=== PATIENT | male | born 1985 | race Caucasian/White ===

== ENCOUNTER 2019-08-28 08:12 | Emergency (ER) | payer OTHER, SELFPAY ==
[~2019-08-28] VITALS: Ht 177.8 cm; Wt 79.4 kg
[2019-08-28 08:18] VITALS: BP 109/72
--- NOTE | 2019-08-28 08:23 | NUR ---
34 YO MALE BIBA FROM [facility] FOR VOMITING OBNCE YESTERDAY. PT HERE TO RULE OUT BOWEL OBSTRUCTION. PT IS ON T-BAR TRACH WITH 2L O2. A/O X2, RESPONSIVE TO PAIN AND VOICE. ABD IS NON DISTENDED AND BS ACTIVE IN ALL 4 QUADS.
--- NOTE | 2019-08-28 08:41 | NUR ---
LAB AT BEDSIDE
--- NOTE | 2019-08-28 08:43 | NUR ---
PT TAKEN TO CT VIA POONAM
[2019-08-28 08:53] LABS: BASOPHILS # (AUTO) 0.1 K/uL (0.00-0.22); BASOPHILS % (AUTO) 0.6 % (0.0-2.0); EOSINOPHILS # (AUTO) 0.1 K/uL (0-0.4); EOSINOPHILS % (AUTO) 0.7 % (0.0-4.0); HEMATOCRIT 34.1 % (36-52); HEMOGLOBIN 10.8 g/dL (12.0-18.0); LYMPHOCYTES # (AUTO) 1.5 K/uL (2.0-11.5); LYMPHOCYTES % (AUTO) 12.7 % (20.5-51.1); MEAN CORPUSCULAR HEMOGLOBIN 24 pg (27-31); MEAN CORPUSCULAR HGB CONC 32 g/dL (33-37); MEAN CORPUSCULAR VOLUME 74.2 fL (80-94); MONOCYTES # (AUTO) 0.5 K/uL (0.8-1.0); MONOCYTES % (AUTO) 4.2 % (1.7-9.3); NEUTROPHILS # (AUTO) 9.4 K/uL (1.8-7.7); NEUTROPHILS % (AUTO) 81.8 % (42.2-75.2); PLATELET COUNT (AUTO) 335 K/uL (140-450); RED BLOOD CELL COUNT(AUTO) 4.59 MIL/uL (4.20-6.10); RED CELL DISTRIBUTION WIDTH 13.8 % (11.6-13.7); WHITE BLOOD COUNT (AUTO) 11.5 K/uL (4.8-10.8)
[2019-08-28] MEDS ORDERED: MAGN400S60 GT/PO (08:53)
[2019-08-28] MEDS ORDERED: SCOP1PAT TP (08:53)
[2019-08-28] MEDS ORDERED: KEP500L GT (08:53)
[2019-08-28] MEDS ORDERED: CHLO480L1 PO (08:53)
[2019-08-28] MEDS ORDERED: PRON INH ×2 (08:53)
[2019-08-28] MEDS ORDERED: LOV40I SUBQ (08:53)
[2019-08-28] MEDS ORDERED: DOCU-299 GT (08:53)
[2019-08-28] MEDS ORDERED: ASCO500T45 PO (08:53)
[2019-08-28] MEDS ORDERED: PROP20TA29 GT (08:53)
[2019-08-28] MEDS ORDERED: MULT-1868 GT (08:53)
[2019-08-28] MEDS ORDERED: ACET-2619 GT (08:53)
--- NOTE | 2019-08-28 09:00 | NUR ---
PT BACK FROM CT
[2019-08-28 09:16] LABS: ALBUMIN 2.7 g/dL (3.4-5.0); CARBON DIOXIDE 29.5 mmol/L (21-32); CREATININE 1.3 mg/dL (0.6-1.3); POTASSIUM 3.5 mmol/L (3.5-5.1); TOTAL BILIRUBIN 0.9 mg/dL (0.0-1.0)
--- NOTE | 2019-08-28 09:34 | NUR ---
PT IN BED SLEEPING. CHEST RISE AND FALL EVEN AND UNLABORED. PT AROUSEABLE TO STIMULI. ALL VSS. WILL CONTINUE TO MONITOR.
--- NOTE | 2019-08-28 10:55 | NUR ---
[facility] at bedside for return transport.
[2019-08-28 11:01] VITALS: BP 105/72
--- NOTE | 2019-08-28 11:03 | NUR ---
Patient Tranfers to outside Facility Physician:DR HOUSE Location:[facility]
--- NOTE | 2019-08-28 18:48 | NUR ---
SPOKE WITH VIOLETTE DIAZ FROM [facility] TO ADVISE THEM ABOUT COVID RESULTS. COVID RESULTS NEGATIVE
== END 2019-08-28 11:03 ==
LOC: MED 08:12 → EEVIPCON 08:12 → MED 11:03
DX: J18.9 Pneumonia, unspecified organism (principal); I51.89 Other ill-defined heart diseases; K21.9 Gastro-esophageal reflux disease without esophagitis; R56.9 Unspecified convulsions; Z98.890 Other specified postprocedural states; Z79.899 Other long term (current) drug therapy; Z20.828 Contact with and (suspected) exposure to other viral communicable diseases
CPT/HCPCS: 36415; 71045; 74176; 80053; 83690; 85025; 99285; C9803; Q0092; U0003; 99284

== ENCOUNTER 2019-12-03 18:06 | Observation (INO) | payer OTHER, SELFPAY ==
[~2019-12-03] VITALS: Ht 177.8 cm; Wt 67.6 kg
[~2019-12-03 18:06] MED LIST: ACET-2619 GT; ALBU0.0912 IH; ASCO500T95 PO; ATRMDI IH; CHLO480L1 PO; DOCU-299 GT; KEP500L GT; LEVE100S26 GT; LOV40I SUBQ; MAGN400S60 GT/PO; MULT-1328 GT; MULT-1868 GT; PIPE1PDS26 IV; POLY15SO74 OP; PRON INH; PROP20TA29 GT; SCOP1PAT TP; SCOPOLAMINE TD
[2019-12-03 18:19] VITALS: BP 104/71
[2019-12-03] MEDS ORDERED: VANC250C9 IV (18:46)
[2019-12-03 18:53] LABS: BASOPHILS % (AUTO) 0.5 % (0.0-2.0); EOSINOPHILS # (AUTO) 0.3 K/uL (0-0.4); EOSINOPHILS % (AUTO) 5.9 % (0.0-4.0); HEMATOCRIT 28.8 % (36-52); HEMOGLOBIN 9.1 g/dL (12.0-18.0); LYMPHOCYTES # (AUTO) 2.1 K/uL (2.0-11.5); LYMPHOCYTES % (AUTO) 39.5 % (20.5-51.1); MEAN CORPUSCULAR HEMOGLOBIN 24 pg (27-31); MEAN CORPUSCULAR HGB CONC 32 g/dL (33-37); MEAN CORPUSCULAR VOLUME 75.2 fL (80-94); MONOCYTES # (AUTO) 0.7 K/uL (0.8-1.0); MONOCYTES % (AUTO) 12.9 % (1.7-9.3); NEUTROPHILS # (AUTO) 2.1 K/uL (1.8-7.7); NEUTROPHILS % (AUTO) 41.2 % (42.2-75.2); PLATELET COUNT (AUTO) 262 K/uL (140-450); RED BLOOD CELL COUNT(AUTO) 3.83 MIL/uL (4.20-6.10); RED CELL DISTRIBUTION WIDTH 14.6 % (11.6-13.7); WHITE BLOOD COUNT (AUTO) 5.2 K/uL (4.8-10.8)
[2019-12-03 19:00] LABS: APPEARANCE,URINE CLEAR (CLEAR); BILIRUBIN,URINE NEGATIVE (NEGATIVE); BLOOD, URINE NEGATIVE (NEGATIVE); COLOR,URINE YELLOW (YELLOW); LEUKOCYTE ESTERASE ,URINE NEGATIVE (NEGATIVE); NITRITE, URINE NEGATIVE (NEGATIVE); UGLUCOSE NEGATIVE (NEGATIVE)
[2019-12-03 19:09] LABS: ALBUMIN 2.8 g/dL (3.4-5.0); ANION GAP 10.7 (8-16); CARBON DIOXIDE 29.1 mmol/L (21-32); CREATININE 0.8 mg/dL (0.6-1.3); POTASSIUM 3.8 mmol/L (3.5-5.1); TOTAL BILIRUBIN 0.2 mg/dL (0.0-1.0)
[2019-12-03] MEDS ORDERED: ACETAMINOPHEN 325 MG TAB PO PRN (19:55)
[2019-12-03] MEDS ORDERED: MORPHINE SULFATE 2 MG/ML SYR IVP PRN (19:55)
[2019-12-03] MEDS ORDERED: ONDANSETRON 4 MG/2 ML VIAL IVP PRN (19:55)
[2019-12-03] MEDS ORDERED: HYDROcodone/APAP 5/325 MG 1 TAB TAB PO PRN (19:55)
[2019-12-03] MEDS ORDERED: SCOPOLAMINE TD SCH (20:00)
[2019-12-03] MEDS ORDERED: MAGNESIUM HYDROXIDE 2400 MG/30 ML UDC PO PRN (20:00)
[2019-12-03] MEDS ORDERED: ACETAMINOPHEN 325 MG TAB GT PRN ×2 (20:00)
[2019-12-03] MEDS ORDERED: ALBUTEROL 0.083% 2.5 MG/3 ML NEBU INH PRN ×2 (20:00)
[2019-12-03] MEDS ORDERED: IPRATROPIUM BROMIDE 17 MCG IH PRN (20:00)
[2019-12-03] MEDS ORDERED: ACETAMINOPHEN 160 MG/5 ML UDC GT ONE (20:05)
[2019-12-03] MEDS ORDERED: DOCUSATE SODIUM 100 MG GELCAP PO SCH (21:00)
[2019-12-03] MEDS ORDERED: VANCOMYCIN IV SCH (21:00)
[2019-12-03] MEDS: levETIRAcetam 100 MG/ML ORASYR GT SCH (21:39)
[2019-12-03] MEDS: PIPERACILLIN/TAZOBACTAM 3.375 GM VIAL IV SCH (21:39)
[2019-12-03] MEDS: CHLORHEXIDINE GLUCONATE 0.12% 473 ML LIQ MM SCH ×2 (21:45→21:52)
[2019-12-03] MEDS ORDERED: VANCOMYCIN HCL 750 MG in NACL 0.9% 250 ML IV SCH (22:00)
[2019-12-03] MEDS ORDERED: IPRATROPIUM HFA MDI 17 MCG/ACTUATION 12.9 GM INH PRN (22:20)
[2019-12-03] MEDS ORDERED: VANCOMYCIN 1,000 MG VIAL ONE (22:28)
[2019-12-03] MEDS: VANCOMYCIN HCL 1,000 MG in NACL 0.9% 250 ML IV SCH (22:39)
[2019-12-04] MEDS: PROPRANOLOL 20 MG TAB GT SCH ×5 (00:16→18:14)
[2019-12-04 03:38] VITALS: BP 115/78
[2019-12-04] MEDS: PIPERACILLIN/TAZOBACTAM 3.375 GM VIAL IV SCH (04:57)
[2019-12-04 06:15] LABS: BASOPHILS % (AUTO) 0.6 % (0.0-2.0); EOSINOPHILS # (AUTO) 0.2 K/uL (0-0.4); EOSINOPHILS % (AUTO) 2.7 % (0.0-4.0); HEMATOCRIT 28.6 % (36-52); HEMOGLOBIN 9.1 g/dL (12.0-18.0); LYMPHOCYTES # (AUTO) 1.6 K/uL (2.0-11.5); LYMPHOCYTES % (AUTO) 22.3 % (20.5-51.1); MEAN CORPUSCULAR HEMOGLOBIN 24 pg (27-31); MEAN CORPUSCULAR HGB CONC 32 g/dL (33-37); MEAN CORPUSCULAR VOLUME 75.7 fL (80-94); MONOCYTES # (AUTO) 0.7 K/uL (0.8-1.0); MONOCYTES % (AUTO) 9.8 % (1.7-9.3); NEUTROPHILS # (AUTO) 4.7 K/uL (1.8-7.7); NEUTROPHILS % (AUTO) 64.6 % (42.2-75.2); PLATELET COUNT (AUTO) 259 K/uL (140-450); RED BLOOD CELL COUNT(AUTO) 3.78 MIL/uL (4.20-6.10); RED CELL DISTRIBUTION WIDTH 14.9 % (11.6-13.7); WHITE BLOOD COUNT (AUTO) 7.2 K/uL (4.8-10.8)
[2019-12-04] MEDS ORDERED: VANCOMYCIN PER PHARMACY MC PRN (07:05)
[2019-12-04] MEDS ORDERED: ACETAMINOPHEN 650 MG/20.3 ML UDC GT PRN ×2 (07:09→07:10)
[2019-12-04] MEDS ORDERED: DOCUSATE 100 MG/10 ML UDC PO SCH (07:11)
[2019-12-04 07:12] LABS: ALBUMIN 3.1 g/dL (3.4-5.0); ANION GAP 12.8 (8-16); MAGNESIUM 1.9 mg/dL (1.8-2.4); POTASSIUM 3.8 mmol/L (3.5-5.1); TOTAL BILIRUBIN 0.3 mg/dL (0.0-1.0)
[2019-12-04] MEDS ORDERED: ASCORBIC ACID 500 MG TAB PO SCH (09:00)
[2019-12-04] MEDS ORDERED: SCOPOLAMINE 1.5 MG/72 HR PATCH TD SCH (09:00)
[2019-12-04] MEDS ORDERED: MULTIVITAMIN/MINERALS 1 TAB PO SCH (09:00)
[2019-12-04] MEDS ORDERED: ENOXAPARIN 40 MG/0.4 ML SYR SUBQ SCH (09:00)
[2019-12-04] MEDS ORDERED: NON-FORMULARY ITEM (Multivitamin with Minerals (Multivitamins with Minerals) 1 TAB) GT SCH (09:00)
[2019-12-04] MEDS: levETIRAcetam 100 MG/ML ORASYR GT SCH (09:20)
[2019-12-04] MEDS: VANCOMYCIN HCL 1,000 MG in NACL 0.9% 250 ML IV SCH (09:57)
[2019-12-04] MEDS ORDERED: PIPERACILLIN/TAZOBACTAM 3.375 GM VIAL IV SCH ×2 (13:33→21:00)
[2019-12-04] MEDS ORDERED: PIPERACILLIN/TAZOBACTAM 3.375 GM in DEXTROSE 5% 50 ML IV SCH ×2 (13:35→21:00)
[2019-12-04] MEDS ORDERED: CRUSHER, PILL MC ONE (13:38)
[2019-12-04 16:00] VITALS: BP 132/76
[2019-12-04 17:06] VITALS: BP 132/76
== END 2019-12-04 19:30 ==
LOC: MED 18:06 → MTU 19:52
PROVIDERS: ADMIT Internal Medicine; ATTEND Internal Medicine
DX: Z45.2 Encounter for adjustment and management of vascular access device (principal); J69.0 Pneumonitis due to inhalation of food and vomit; J96.10 Chronic respiratory failure, unspecified whether with hypoxia or hypercapnia; G93.49 Other encephalopathy; G40.909 Epilepsy, unspecified, not intractable, without status epilepticus; D63.8 Anemia in other chronic diseases classified elsewhere; R53.2 Functional quadriplegia; I10 Essential (primary) hypertension; Z93.0 Tracheostomy status; Z93.1 Gastrostomy status; Z79.899 Other long term (current) drug therapy
CPT/HCPCS: 36415; 36573; 71045; 76937; 80053; 80202; 81003; 83605; 83735; 83880; 84484; 85025; 87040; 87086; 94760; 96365; 96366; 96367; 96372; 99285; G0378; J1650; J2543; J3370; J7030; J7060; Q0092; C1751

== ENCOUNTER 2020-08-15 16:36 | Inpatient (IN) | payer OTHER, MEDICAID, SELFPAY ==
[~2020-08-15] VITALS: Ht 167.6 cm; Wt 82.1 kg
[~2020-08-15 16:36] MED LIST changes: +ASCO500T95 GT; -ASCO500T95 PO; +VANC250C9 IV
--- NOTE | 2020-08-15 16:36 | NUR ---
Patient BIBA ALS, transferred to bed 11. RN evaluating the patient at bedside.
--- NOTE | 2020-08-15 16:38 | NUR ---
Dr. Desouza is evaluating the patient at bedside.
[2020-08-15 16:43] VITALS: BP 72/44
[2020-08-15] MEDS ORDERED: NACL 0.9% 1,000 ML IV ONE ×3 (16:55→19:55)
--- NOTE | 2020-08-15 16:59 | NUR ---
35/M shatony from [facility]. Per EMS staff states patient had a meléndez catheter placed 10 hours ago and blood was noticed in the bag. Patient arrived with no meléndez, site appears to still be slightly bleeding. Patient is nonverbal and nonambulatory at baseline. Patient arrived hypotensive and tachycardic. Patient is DNR, comfort measures only per chart that was received by EMS. Doctor Said called family to discuss further care for patient.
--- NOTE | 2020-08-15 17:00 | NUR ---
earth moving technician at bedside.
[2020-08-15] MEDS ORDERED: cefTRIAXone 1,000 MG VIAL ONE (17:06)
[2020-08-15] MEDS ORDERED: AZITHROMYCIN 500 MG in DEXTROSE 5% 250 ML IV ONE (17:25)
[2020-08-15 18:16] LABS: HEMATOCRIT 32.6 % (36-52); HEMOGLOBIN 10.2 g/dL (12.0-18.0); MEAN CORPUSCULAR HEMOGLOBIN 24 pg (27-31); MEAN CORPUSCULAR HGB CONC 31 g/dL (33-37); MEAN CORPUSCULAR VOLUME 75.6 fL (80-94); PLATELET COUNT (AUTO) 235 K/uL (140-450); RED BLOOD CELL COUNT(AUTO) 4.31 MIL/uL (4.20-6.10); RED CELL DISTRIBUTION WIDTH 14.7 % (11.6-13.7); WHITE BLOOD COUNT (AUTO) 22.6 K/uL (4.8-10.8)
[2020-08-15] MEDS ORDERED: AZITHROMYCIN 500 MG INJ VIAL IV ONE (18:51)
[2020-08-15 18:55] LABS: EOSINOPHILS % (MANUAL) 1 % (0-4); LYMPHOCYTES % (MANUAL) 7 % (20-46); MONOCYTES % (MANUAL) 11 % (5-12)
[2020-08-15 18:58] LABS: APPEARANCE,URINE CLOUDY (CLEAR); BILIRUBIN,URINE 1+ (NEGATIVE); BLOOD, URINE 3+ (NEGATIVE); COLOR,URINE RED (YELLOW); LEUKOCYTE ESTERASE ,URINE TRACE (NEGATIVE); NITRITE, URINE NEGATIVE (NEGATIVE); UGLUCOSE TRACE (NEGATIVE)
[2020-08-15 19:00] LABS: RBC,URINE TOO NUMEROUS TO COUN /HPF (0-5); WBC,URINE 0-5 /HPF (0-5)
[2020-08-15 19:03] LABS: ALBUMIN 2.5 g/dL (3.4-5.0); ANION GAP 18.6 (8-16); CARBON DIOXIDE 18.7 mmol/L (21-32); POTASSIUM 5.3 mmol/L (3.5-5.1); TOTAL BILIRUBIN 0.5 mg/dL (0.0-1.0)
--- NOTE | 2020-08-15 19:15 | NUR ---
RECEIVED REPORT FROM VIOLETTE LAY. [facility] AT THIS TIME.
--- NOTE | 2020-08-15 20:00 | NUR ---
PT SUCTIONED AT THIS TIME.
--- NOTE | 2020-08-15 20:00 | NUR ---
INDWELLING 16FR PARSONS REMOVED. INSERTED NEW 16FR THREE WAY PARSONS FOR CONT BLADDER IRRIGATION.
--- NOTE | 2020-08-15 20:01 | NUR ---
ERMD SAID MADE AWARE OF PTS LOW BP BEING 80/35. PER MD, SET UP CENTRAL LINE KIT AT BEDSIDE.
[2020-08-15] MEDS ORDERED: ONDANSETRON 4 MG/2 ML VIAL IVP PRN (20:30)
[2020-08-15] MEDS ORDERED: MAG SULF 2000 MG/WATER PREMIX 50 ML IV PRN (20:30)
[2020-08-15] MEDS ORDERED: NACL 0.9% 1,000 ML IV SCH (20:30)
[2020-08-15] MEDS ORDERED: MORPHINE SULFATE 4 MG/ML SYR IVP PRN (20:30)
[2020-08-15] MEDS ORDERED: POTASSIUM CHLORIDE 10 MEQ TABER PO PRN (20:30)
[2020-08-15] MEDS ORDERED: KCL 20 MEQ/WATER INJ PREMIX 200 ML IV PRN (20:30)
[2020-08-15] MEDS ORDERED: MAGNESIUM OXIDE 400 MG TAB PO PRN (20:30)
[2020-08-15 20:32] LABS: PROTHROMBIN TIME 18.8 secs (10.8-13.4)
--- NOTE | 2020-08-15 21:00 | NUR ---
CENTRAL LINE KIT SET UP AT BEDSIDE FOR
--- NOTE | 2020-08-15 21:30 | NUR ---
NEW CENTRAL LINE KIT SETUP AT BEDSIDE D/T UNSUCCESSFULL ATTEMPT THE FIRST TIME.
--- NOTE | 2020-08-15 21:45 | NUR ---
MD TRIED 2X FOR CENTRAL LINE PLACEMENT, BOTHJ ATTEMPTS UNSUCESSFUL.
--- NOTE | 2020-08-15 22:00 | NUR ---
Patient will be admitted to care of DR. DIAZ. Admited to ICU. Will go to room 4. Belongings list completed. Report to VIOLETTE PEDRAZA.
--- NOTE | 2020-08-15 22:15 | NUR ---
PT TRANSPORTED FROM ED TO ICU 4 PT PLACED ON CA 9L 28% PT TOLERATED TRANSPORT WELL WILL CONTINUE TO MONITOR
--- NOTE | 2020-08-15 22:15 | NUR ---
RECIEVED PT ADMIT FROM ED NURSE Bhargav LOPEZ&BONIFACIO1, LETHARGIC, RESPONDS TO NAME AND LIGHT PAIN, ALL FOUR EXTREMITIES CONTRACTED, ST ON MONITOR, TRACH COLLOR TO AEROSOL FIO2 24% 9L/MIN, AFEBRILE, SKIN WARM AND DRY, NON INTACT, SACRAL PRESSURE ULCER/AWAITING WOUND CONSULT, PEG TUBE IN PLACE AND CLAMPED, PT NPO EXCEPT FOR MEDS. [address] W/ CONTINUOUR IRRIGATION, BRIGHT BLOODY TINGED URINE, PT HAD A BM UPON ARRIVAL, 20 G PERIPHERAL IV ON R HAND SALINE LOCKED, PT SHOWING NO SIGNS OF ACUTE DISTRES, SAFETY MEASURES IN PLACE, WILL CONTINUE WITH CURRENT POC
[2020-08-15 23:00] VITALS: BP 111/47
[2020-08-15] MEDS: NACL 0.9% 1,000 ML IV SCH (23:05)
--- NOTE | 2020-08-15 23:05 | NUR ---
STARTED PT NS @ 150MLS/HR
[2020-08-15] MEDS ORDERED: PIPERACILLIN/TAZOBACTAM 2.25 GM VIAL IV ONE (23:12)
--- NOTE | 2020-08-15 23:16 | NUR ---
UNABLE TO OBTAIN ABG AT THIS TIME DUE TO LOW BP
[2020-08-15] MEDS ORDERED: NOREPINEPHRINE 4 MG/4 ML VIAL IV ONE (23:30)
[2020-08-15] MEDS: PIPERACILLIN/TAZOBACTAM 2.25 GM in DEXTROSE 5% 50 ML IV SCH (23:50)
[2020-08-15] MEDS: NOREPINEPHRINE 4 MG in DEXTROSE 5% 250 ML IV SCH (23:58)
[2020-08-16] VITALS (24 sets, daily range): BP systolic 79–150; BP diastolic 45–78
--- NOTE | 2020-08-16 00:05 | NUR ---
PT BLOOD PRESSURE 74/43, STARTED INFUSING LEVOPHED 4MG
--- NOTE | 2020-08-16 00:10 | NUR ---
STARTED FIRST DOSE OF ZOSYN 2.25 PER MD ORDERS
--- NOTE | 2020-08-16 02:10 | NUR ---
REPOSITIONED PT, ORAL CARE AND SUCTIONING PERFORMED. PT SHOWING NO SIGNS OF ACUTE DISTRESS, SAFETY MEASURES IN PLACE
[2020-08-16] MEDS ORDERED: NOREPINEPHRINE 4 MG/4 ML VIAL IV ONE ×2 (03:13→05:44)
[2020-08-16] MEDS: NOREPINEPHRINE 4 MG in DEXTROSE 5% 250 ML IV SCH ×4 (03:38→12:51)
--- NOTE | 2020-08-16 04:04 | NUR ---
ADMINISTERED 0500H MEDICAITON PER MD ORDERS
[2020-08-16] MEDS: PIPERACILLIN/TAZOBACTAM 2.25 GM in DEXTROSE 5% 50 ML IV SCH ×3 (04:08→21:24)
[2020-08-16] MEDS: NACL 0.9% 1,000 ML IV SCH ×3 (04:35→23:09)
[2020-08-16 06:13] LABS: HEMATOCRIT 28.1 % (36-52); HEMOGLOBIN 9.2 g/dL (12.0-18.0); MEAN CORPUSCULAR HEMOGLOBIN 25 pg (27-31); MEAN CORPUSCULAR HGB CONC 33 g/dL (33-37); PLATELET COUNT (AUTO) 287 K/uL (140-450); RED BLOOD CELL COUNT(AUTO) 3.75 MIL/uL (4.20-6.10); RED CELL DISTRIBUTION WIDTH 14.6 % (11.6-13.7)
[2020-08-16 06:17] LABS: ALBUMIN 2.1 g/dL (3.4-5.0); ANION GAP 20.1 (8-16); CARBON DIOXIDE 17.3 mmol/L (21-32); CREATININE 2.3 mg/dL (0.6-1.3); MAGNESIUM 1.1 mg/dL (1.8-2.4); POTASSIUM 4.4 mmol/L (3.5-5.1); TOTAL BILIRUBIN 0.4 mg/dL (0.0-1.0)
--- NOTE | 2020-08-16 06:17 | NUR ---
ADMINISTERED NEW BAG OG NS AND LEVOPHED
[2020-08-16 07:20] LABS: WHITE BLOOD COUNT (AUTO) 28.7 K/uL (4.8-10.8)
[2020-08-16 07:21] LABS: EOSINOPHILS % (MANUAL) 3 % (0-4); LYMPHOCYTES % (MANUAL) 6 % (20-46); MONOCYTES % (MANUAL) 5 % (5-12)
--- NOTE | 2020-08-16 07:27 | NUR ---
ENDORSED TO DAY SHIFT RN FOR CONTINUITY OF CARE
--- NOTE | 2020-08-16 07:30 | NUR ---
BEDSIDE REPORT RECEIVED FROM BODY COMPONENT ENGINEER JULIEN, PT SLEEPING, OPENS EYES TO VOICE, DOES NOT FOLLOW COMMANDS, RESP EVEN UNLABORED, RR IN CREASED TO 40, TRACH TO COOL AEROSOL WITH 9L O2, FIO2 24%, SKIN WARM DRY COLOR WNL, ST ON MONITOR, PT ON LEVOPHED AT 25MCG/MIN, RIGHT HAND PIV 22G, SITE WNL, PEG TO BE IN PLACE, PARSONS CATH TO GRAVITY PINK TINGED YELLOW URINE, PLAN OF CARE REVIEWED, ALL SAFETY MEASURES IN PLACE, WILL CONTINUE TO MONITPOR.
--- NOTE | 2020-08-16 08:55 | NUR ---
RECEIVED FNS CONSULT FOR WOUNDS/PRESSURE INJURIES. PATIENT HAS BEEN SCREENED AND CATEGORIZED HIGH NUTRITION RISK. PATIENT WILL BE SEEN WITHIN 1-2 DAYS OF ADMISSION. 08/16/20-08/17/[address]
[2020-08-16] MEDS ORDERED: ENOXAPARIN 40 MG/0.4 ML SYR SUBQ SCH (09:00)
--- NOTE | 2020-08-16 09:30 | NUR ---
LARGE BMX1, PERICARE DONE PARSONS CARE DONE, SML AMT OF BLEEDING/WOOZING OF BRIGHT RED BLOOD NOTED
--- NOTE | 2020-08-16 10:30 | NUR ---
WOUND CARE EVALUATION NOTE: SKIN ASSESSMENT DONE WITH PRIMARY RN. 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 ADMITTED WITH INITIAL DX OF HEMATURIA AND PRESSURE INJURY TO SACRALCOCCYX. ALL ABOVE INFORMATION OBTAIN FROM H&P. PT.S EYES OPEN, ALL EXTREMITIES STIFFNESS WITH CONTRACTURES TO WRISTS AND KNEES.BILATERAL HEELS THIN CALLUS, MULTIPLE OLD HEALED SCARS TO ABDOMINAL WALL, LEFT THIGH AND LEFT MEDIAL KNEE. SKIN WARM AND DRY, WATERY BM AT TIME OF ASSESSMENT, PER PRIMARY RN PT. STARTED WITH EPISODES OF WATERY BM SINCE ADMISSION. POC DISCUSSED WITH DR. SHARMA AND PRIMARY RN. INTEGUMENTARY: -TRACH AND PEG GRANT-STOMA SKIN DRY AND INTACT. -INCONTINENT ASSOCIATED DERMATITIS TO RIGHT AND LEFT GROINS, SCROTUM, GRANT-ANAL AND SKIN MOIST, RED AND SKIN INTACT -SACRAL COCCYX PRESSURE INJURY STAGE 4, 2X1.5X1CM, WOUND BED 100% GRANULATING TISSUE, SMALL AMOUNT SEROUS DRAINAGE, NO ODOR, GRANT-WOUND SKIN HEALED SCARS, PALE PINK, SURROUNDING TISSUE REDNESS INDICATED FURTHER DAMAGE. RECOMMENDATIONS -MAY APPLY RECTAL TUBE PER MANUFACTURE GUIDELINE AND IF NOT CONTRAINDICATED WITH CURRENT PLAN -CLEANSE AREA WITH SOAP AND WATER, PAT DRY, APPLY HYDRAGUARD TO RIGHT AND LEFT GROINS, SCROTUM, GRANT-ANAL BID AND PRN IF SOILING -CLEANSE SACRALCOCCYX WITH NS, PAT DRY, APPLY ALGINATE DRESSING CHANGE QD AND PRN IF SOILING,, OFF LOADING AT ALL TIMES -KEEP SKIN CLEAN AND DRY AT ALL TIMES. -TURN AND REPOSITION PATIENT Q 2H -ASSESS AND MONITOR SKIN CONDITION DURING POSITION CHANGE -OFFLOAD BILATERAL HEELS BY PLACING PILLOWS UNDER CALVES AT ALL TIMES, UNLESS OTHERWISE CONTRAINDICATED -PRESSURE REDISTRIBUTION SURFACE THERAPY PLEASE CONTACT WOUND CARE NURSE FOR ANY QUESTION AND CHANGE OF WOUND CONDITION.
--- NOTE | 2020-08-16 10:39 | NUR ---
DR. SHARMA AT BEDSIDE
[2020-08-16] MEDS ORDERED: CALCIUM GLUCONATE 10% 1,000 MG in NACL 0.9% 50 ML IV SCH (11:00)
[2020-08-16] MEDS ORDERED: MAG SULF 2000 MG/WATER PREMIX 50 ML IV SCH (12:00)
--- NOTE | 2020-08-16 12:53 | NUR ---
RT EVALUATING PATIENT. CHANGED STERILE WATER. PT HAS COPIOUS AMOUNT OF FROTHY PINK SECRETIONS. SXN'D PT. PT'S SPO2 IS 89 . INCREASED FIO2 TO 40%. RN AWARE. WILL CONTINUE TO MONITOR.
[2020-08-16] MEDS: ALGINATE ROPE MC SCH (13:00)
[2020-08-16] MEDS: HYDRAGUARD CREAM TP SCH (13:00)
--- NOTE | 2020-08-16 13:09 | NUR ---
PLACED ON WOUND MATTRESS
[2020-08-16] MEDS: ACETAMINOPHEN 650 MG/20.3 ML UDC PO PRN (14:30)
--- NOTE | 2020-08-16 14:35 | NUR ---
FATHER OF PT AT BEDSIDE, PT CONDITION DISCUSSED.
--- NOTE | 2020-08-16 14:45 | NUR ---
08/16/20 RD INITIAL ASSESSMENT COMPLETED PLEASE REFER TO NUTRITION ASSESSMENT UNDER CARE ACTIVITY FOR ESTIMATED NUTRITIONAL NEEDS. 1. CURRENT TF ORDER: VITAL 1.2 @ 40 ML/HR WITH PROSOURCE ONCE. ONCE PT BECOMES MEDICALLY CLEARED, CONSIDER INCREASING GOAL RATE TO 65 ML/HR WITH PROSOURCE ONCE DAILY. -THIS WILL PROVIDE DAILY 1560 ML OF VOLUME, 1932 KCAL AND 132 GM OF PROTEIN. 2. RECOMMEND FLUSH OF 115 ML Q4H 3. RECOMMEND VITAMIN C 500 MG DAILY MULTIVITAMIN DAILY 4. RD TO FOLLOW-UP 2-3 DAYS, HIGH RISK LATISHA TOURE RD
[2020-08-16] MEDS ORDERED: ACETAMINOPHEN 650 MG/20.3 ML UDC ONE (14:55)
--- NOTE | 2020-08-16 15:30 | NUR ---
DR DIAZ AT BEDSIDE, PT'S FATHER BACK AT BEDSIDE PT CONDITION AND PLAN OF CARE DISCUSSED.
--- NOTE | 2020-08-16 16:05 | NUR ---
PICC LINE RN AT BEDSIDE TO PLACE PICC LINE. AFTER VIEWING C XRAY, PER PICC LINE RN OKAY TO USE
--- NOTE | 2020-08-16 16:20 | NUR ---
BED BATH GIVEN CHG WIPE DONE, PARSONS CARE DONE, TEMP NOW 98.8, SMALL CLOTS NOTED AT MEATUS, NO ACTIVE BLEEDING.
--- NOTE | 2020-08-16 17:55 | NUR ---
US AT BEDSIDE FOR KIDNEY/BLADDER US
--- NOTE | 2020-08-16 18:46 | NUR ---
TUBE FEEDING STARTED WITH VITAL AF, PROSOURCE GIVEN
--- NOTE | 2020-08-16 18:50 | NUR ---
DR LLOYD AT BEDSIDE
[2020-08-16] MEDS ORDERED: VANCOMYCIN PER PHARMACY MC PRN (18:55)
--- NOTE | 2020-08-16 19:15 | NUR ---
RECEIVED PATIENT FROM AM SHIFT NURSE FOR CONTINUITY OF CARE. OPENS EYES, UNABLE TO MAKE NEEDS KNOWN. TRACH TO TBAR. FIO2 24%, 9L O2. O2SAT 100%. SUCTIONED FREQUENTLY DUE TO COPIOUS WHITE SECRETIONS. RESPIRATIONS EVEN, UNLABORED. NO S/S RESPIRATORY DISTRESS. S1/S2 AUSCULTATED. SKIN WARM, DRY. RIGHT UPPER ARM PICC NOTED, INFUSING LEVOPHED AND FLUIDS. FLACC 0. NO S/S ACUTE DISTRESS. ABDOMEN SOFT, NONTENDER. BOWEL SOUNDS ACTIVE x4 QUADRANTS. GT PATENT/INTACT. CONTINUES ON ENTERAL FEEDING, TOLERATING WELL. NO RESIDUAL NOTED. HOB UP 30 DEGREES. PARSONS CATHETER PATENT WITH STRAW YELLOW URINE DRAINING TO GRAVITY. RECTAL TUBE IN PLACE. PLAN OF CARE DISCUSSED. FREQUENT ROUNDS BY ALL STAFF.
[2020-08-16] MEDS: VANCOMYCIN 1,000 MG in DEXTROSE 5% 250 ML IV SCH (20:02)
--- NOTE | 2020-08-16 20:38 | NUR ---
1920 sxned pt for sputum sample. sent sample tp lab
--- NOTE | 2020-08-16 20:40 | NUR ---
patient is on 28% t-piece cool aerosol
--- NOTE | 2020-08-16 21:00 | NUR ---
DUE MEDS GIVEN.
--- NOTE | 2020-08-16 21:40 | NUR ---
2119 ABG DRAWN ON 28% T-PIECE COOL AEROSOL. SEE RESULTS
--- NOTE | 2020-08-16 23:00 | NUR ---
TURNED AND REPOSITIONED.
[2020-08-17] VITALS (22 sets, daily range): BP systolic 90–111; BP diastolic 44–64
--- NOTE | 2020-08-17 01:00 | NUR ---
PATIENT RESTING COMFORTABLY IN BED. SUCTIONED COPIOUS SECRETIONS.
[2020-08-17] MEDS: HYDRAGUARD CREAM TP SCH ×2 (01:12→13:13)
--- NOTE | 2020-08-17 03:00 | NUR ---
TURNED AND REPOSITIONED.
[2020-08-17] MEDS: PIPERACILLIN/TAZOBACTAM 2.25 GM in DEXTROSE 5% 50 ML IV SCH ×3 (04:44→22:15)
--- NOTE | 2020-08-17 05:42 | NUR ---
0515 PATIENT HAS LARGE AMTS OF FROTHY WATERY SECRETIONS.
[2020-08-17 05:48] LABS: HEMOGLOBIN 8.6 g/dL (12.0-18.0); MEAN CORPUSCULAR HEMOGLOBIN 24 pg (27-31); MEAN CORPUSCULAR HGB CONC 33 g/dL (33-37); MEAN CORPUSCULAR VOLUME 73.4 fL (80-94); PLATELET COUNT (AUTO) 160 K/uL (140-450); RED BLOOD CELL COUNT(AUTO) 3.54 MIL/uL (4.20-6.10)
--- NOTE | 2020-08-17 05:56 | NUR ---
PRELIM BLOOD CULTURE REPORT RECEIVED. WILL INFORM MD DURING MORNING ROUNDS.
[2020-08-17 05:59] LABS: ANION GAP 12.3 (8-16); CARBON DIOXIDE 23.4 mmol/L (21-32); CREATININE 1.2 mg/dL (0.6-1.3); MAGNESIUM 1.9 mg/dL (1.8-2.4); POTASSIUM 3.7 mmol/L (3.5-5.1); TOTAL BILIRUBIN 0.6 mg/dL (0.0-1.0)
[2020-08-17 06:02] LABS: PROTHROMBIN TIME 13.2 secs (10.8-13.4)
[2020-08-17 07:21] LABS: EOSINOPHILS % (MANUAL) 3 % (0-4); LYMPHOCYTES % (MANUAL) 7 % (20-46); MONOCYTES % (MANUAL) 3 % (5-12)
--- NOTE | 2020-08-17 07:21 | NUR ---
BEDSIDE REPORT RECEIVED FROM COMBAT SYSTEMS OPERATOR JULIEN, PT SLEEPING, OPENS EYES TO VOICE, DOES NOT TRACK, DOES NOT FOLLOW COMMANDS, RESP EVEN UNLABORED, RR INCREASED TO 30-35, TRACH TO COOL AEROSOL WITH O2, FIO2 28%, SKIN WARM DRY COLOR WNL, ST ON MONITOR, PT ON LEVOPHED AT 10MCG/MIN, RIGHT PICC, SITE WNL, PEG TO BE IN PLACE, PARSONS CATH TO GRAVITY SLIGHTLY PINK TINGED YELLOW URINE, PLAN OF CARE REVIEWED, ALL SAFETY MEASURES IN PLACE, WILL CONTINUE TO MONITOR.
[2020-08-17] MEDS: ACETAMINOPHEN 650 MG/20.3 ML UDC PO PRN ×3 (08:21→18:35)
[2020-08-17] MEDS: ASCORBIC ACID 500 MG/5 ML ORASYR GT SCH (08:21)
[2020-08-17] MEDS: MULTIVITAMIN 1 TAB PO SCH (08:21)
[2020-08-17] MEDS: PANTOPRAZOLE 40 MG INJ VIAL IVP SCH (08:21)
--- NOTE | 2020-08-17 08:36 | NUR ---
TYLENOL GIVEN FOR FEVER 100.8
[2020-08-17] MEDS: NOREPINEPHRINE 8 MG in DEXTROSE 5% 250 ML IV PRN (09:16)
--- NOTE | 2020-08-17 09:21 | NUR ---
DR STANFORD AT BEDSIDE
--- NOTE | 2020-08-17 10:30 | NUR ---
DR SHARMA AT BEDSIDE
--- NOTE | 2020-08-17 11:55 | NUR ---
LEAK FROM RECTAL TUBE, PERICARE DONE, PARSONS CARE DONE, LINEN CHANGED, CHG WIPE DONE.
[2020-08-17] MEDS: NACL 0.9% 1,000 ML IV SCH (12:43)
[2020-08-17] MEDS: ALGINATE ROPE MC SCH (13:13)
--- NOTE | 2020-08-17 13:14 | NUR ---
ZOSYN STARTED PER SCHEDULE, WOUND CARE DONE, SACRAL WOUND CLEANSED WITH NS, PAT DRY, ALGINATE AND DRESSING APPLIED.
--- NOTE | 2020-08-17 13:40 | NUR ---
SIGNIFICANT OTHER SUSANA LOZANO [phone], VISITING PT AT BEDSIDE, OK'D BY FATHER KETTY PARKS SR.
--- NOTE | 2020-08-17 14:28 | NUR ---
LATE ENTRY -- ADELAHIN END TIME IS 4035 08/15/20
--- NOTE | 2020-08-17 15:02 | NUR ---
DR DIAZ AT BEDSIDE
--- NOTE | 2020-08-17 15:15 | NUR ---
TRACH CARE DONE, TOLERATED WELL.
--- NOTE | 2020-08-17 17:02 | NUR ---
ORAL CARE DONE, PERICARE DONE, CHG WIPE DONE, FEEDING TUBE CHANGED, PROSOURCE GIVEN.
--- NOTE | 2020-08-17 18:39 | NUR ---
TYLENOL GIVEN FOR TEMP 100.6
--- NOTE | 2020-08-17 19:30 | NUR ---
RECEIVED REPORT AT BEDSIDE FROM MARIA EUGENIA OAKES DAYSHIFT NURSE FOR CONTINUITY OF CARE, PT IN STABLE CONDITION. PT IS AOX1 LYING IN BED HOB UP 45%. HE HAS A TRACH TO PIECE RUNNING AT 6 LITERS WITH COOL AEROSOL MIST. PT OPENS EYES SPONTANEOUSLY, BUT DOESN'T TRACK WITH HIS EYES. HE HAS A RIGHT UPPER PIC DOUBLE LUMEN WITH DRESSING DRY AND INTACT RUNNING NORMAL SALINE AT 80 MLS/HR. WELL LEVOPHED TO HELP INCREASE B/P RUNNING AT 6 MCG/MIN. PT HAS G TUBE INTACT RUNNING VITAL AF AT 40MLS/HR. NO RESIDUAL NOTED. PT ALSO HAS A PARSONS CATHETER IN PLACE AND DRAINING YELLOW URINE, A MINIMAL AMOUNT OF BLOOD LEAKING FROM TIP OF PENIS. PT ALSO HAS A RECTAL BAG DRAINING BROWN LIQUID STOOL. PT HAS CONTRACTURES IN UPPER AND LOWER LIMBS AND HAS SCD'S FOR DVT PREVENTION. ALL FALLS AND ASPIRATION PREVENTION IN PLACE. V/S FOLLOWS: T 99.2 P 110 R 36 B/P 105/50 02 99%.
--- NOTE | 2020-08-17 20:00 | NUR ---
VANCOMYCIN HUNG AND RUNNING AT 165MLS/HR. COOLING MEASURES APPLIED FOR INCREASED TEMP OF 99.2. OTHER V/S FOLLOWS: P 11 R 36 B/P 94/55 02 99%. WILL CONTINUE TO MONITOR TEMPERATURE.
[2020-08-17] MEDS: VANCOMYCIN 1,000 MG in DEXTROSE 5% 250 ML IV SCH (20:12)
[2020-08-17] MEDS ORDERED: MORPHINE SULFATE 2 MG/ML SYR ONE (21:14)
--- NOTE | 2020-08-17 21:30 | NUR ---
PT WAS SUCTIONED, TURNED AND REPOSITIONED IN BED. ZOSYN HUNG AND RUNNING ORDERED. RETAKE OF TEMP WAS 97.7. ALL ORDERED PRECAUTIONS IN PLACE.
--- NOTE | 2020-08-17 22:10 | NUR ---
FATHER OF PATIENT CALLED AND SPOKE WITH HIM REGARDING PT CURRENT CONDITION. PT ALSO ASKED ABOUT THE RAMIFICATIONS OF COMFORT CARE. EXPLAINED THE DIFFERENCE BETWEEN DNR AND COMFORT CARE, SYMPATHIZED WITH FATHER BUT REDIRECTED HIM TO PHYSIOTHERAPY AIDE WHOM WILL ASSIST IN TRANSITIONING PT TO AFTER CARE. FATHER VERBALIZED UNDERSTANDING.
[2020-08-18] VITALS (24 sets, daily range): BP systolic 94–121; BP diastolic 47–76
--- NOTE | 2020-08-18 | NUR ---
PT WAS TURNED AND REPOSITIONED IN BED ORAL CARE PROVIDED NO S/S OF PAIN OR DISTRESS NOTED V/S FOLLOWS: T 97.2 P 101 R 33 B/P 94/50 02 99%. G TUBE CONTINUES AT 40 MLS/HR FEEDING WELL TOLERATED NORMAL SALINE RUNNING AT 80MLS/HR. ALL ORDERED PRECAUTIONS IN PLACE.
[2020-08-18] MEDS: NACL 0.9% 1,000 ML IV SCH ×2 (01:45→13:33)
[2020-08-18] MEDS: HYDRAGUARD CREAM TP SCH ×2 (01:46→13:14)
--- NOTE | 2020-08-18 04:00 | NUR ---
PT IS TURNED, CHANGED AND REPOSITIONED IN BED ORAL CARE PROVIDED ALL ORDERED PRECAUTIONS IN PLACE.
[2020-08-18 04:58] LABS: HEMATOCRIT 22.8 % (36-52); HEMOGLOBIN 7.4 g/dL (12.0-18.0); MEAN CORPUSCULAR HEMOGLOBIN 24 pg (27-31); MEAN CORPUSCULAR HGB CONC 33 g/dL (33-37); PLATELET COUNT (AUTO) 134 K/uL (140-450); RED BLOOD CELL COUNT(AUTO) 3.13 MIL/uL (4.20-6.10); RED CELL DISTRIBUTION WIDTH 15.1 % (11.6-13.7)
--- NOTE | 2020-08-18 05:30 | NUR ---
ZOSYN HUNG AND RUNNING AT 100MLS/HR. ALL ORDERED PRECAUTIONS IN PLACE.
[2020-08-18 05:38] LABS: ALBUMIN 1.8 g/dL (3.4-5.0); ANION GAP 9.9 (8-16); CARBON DIOXIDE 24.1 mmol/L (21-32); MAGNESIUM 1.5 mg/dL (1.8-2.4); TOTAL BILIRUBIN 0.6 mg/dL (0.0-1.0)
[2020-08-18 06:01] LABS: WHITE BLOOD COUNT (AUTO) 25.3 K/uL (4.8-10.8)
[2020-08-18] MEDS: PIPERACILLIN/TAZOBACTAM 2.25 GM in DEXTROSE 5% 50 ML IV SCH ×3 (06:07→20:33)
[2020-08-18 06:40] LABS: EOSINOPHILS % (MANUAL) 3 % (0-4); LYMPHOCYTES % (MANUAL) 6 % (20-46); MONOCYTES % (MANUAL) 3 % (5-12)
--- NOTE | 2020-08-18 07:23 | NUR ---
REPORT GIVEN TO ROBER RN DAYSHIFT NURSE AT BEDSIDE FOR CONTINUITY OF CARE, PT IN STABLE CONDITION. K MIRANDA HUNG DUE TO POTASSIUM AT 3.0
--- NOTE | 2020-08-18 07:29 | NUR ---
[facility] PT RESTING IN BED. FLACC 0. TRACH TO T PIECE AT 6L. RESPIRATIONS EVEN AND UNLABORED WITH NO SOB OR RESPIRATORY DSITRESS. SKIN WARM AND DRY TO TOUCH. DONG PICC LINE IS CLEAN, DRY, AND INTACT. LEVO AT 6MCG INFUSING. PARSONS CATH DRAINING VIA GRAVITY. PT ON G-TUBE FEEDINGS. PT WITH RECTAL BAG IS CLEAN, DRY, AND INTACT. SAFETY MEASURES IN PLACE. WILL CONTINUE TO MONITOR
[2020-08-18] MEDS: PANTOPRAZOLE 40 MG INJ VIAL IVP SCH (08:31)
[2020-08-18] MEDS: MULTIVITAMIN 1 TAB PO SCH (08:31)
[2020-08-18] MEDS: ASCORBIC ACID 500 MG/5 ML ORASYR GT SCH (08:31)
[2020-08-18] MEDS: LACTOBACILLUS RHAMNOSUS GG 1 EACH CAP PO SCH (08:32)
--- NOTE | 2020-08-18 08:53 | NUR ---
ADMINISTERED SCHED MED PRESCRIBED PER MD ORDER. PT TOLERATED WELL. MEDICATION EDUCATION PERFORMED. PT APHASIC AND UNABLE TO VERBALIZE UNDERSTANDING. SAFETY MEASURES IN PLACE. WILL CONTINUE TO MONITOR
[2020-08-18] MEDS: NOREPINEPHRINE 8 MG in DEXTROSE 5% 250 ML IV PRN (08:54)
--- NOTE | 2020-08-18 09:22 | NUR ---
DC PLANNING: RECEIVED A CALL FROM PATIENT'S FATHER NAME JOSE LUIS PARKS , REQUESTED TO DISCUSS THE COMFORT CARE WITH . PAGELux DIAZ, PROVIDE DAD'S NUMBER. CM TO FOLLOW Addendum: 08/20/20 at 0904 by Manuela Viera RN DC PLANNING: PT IS ON COMFORT CARE ON MORPHINE DRIP 8ML/HR , HR 113, ON ROOM AIR SATING 70%. CM TO FOLLOW Addendum: 08/23/20 at 1051 by Manuela Viera RN DC PLANNING: PER NOTES FAMILY WITHDRAW THE COMFORT CARE AND TO DC WITH [facility]. CALLED [facility] LEFT A MESSAGE. CALLED [facility] SPOKE WITH RENETTA LUNDBERG [facility] THEY CAN NOT TAKE PATIENT WITH TRACH ON HOSPICE. AWAITING FOR THE ATTENDING FOR PLAN OF DISCHARGE. CM TO FOLLOW Addendum: 08/23/20 at 1547 by Conchis Verduzco CM NATHAN GYN: PATIENT WILL RETURN TO [facility]. ROOM 1-B UNDER DR. DIAZ. TRANSPORTATION HAS BEEN ARRANGED WITH [facility] FOR 5:00 PM
--- NOTE | 2020-08-18 10:16 | NUR ---
PT RESTING IN BED. FLACC 0. RESPIRATIONS EVEN AND UNLABORED WITH NO SOB OR RESPIRATORY DISTRESS. SAFETY MEASURES IN PLACE. WILL CONTINUE TO MONITOR
--- NOTE | 2020-08-18 10:33 | NUR ---
DR. SHARMA HERE ASSESSING PATIENT AND SPEAKING WITH FAMILY ON THE PHONE
--- NOTE | 2020-08-18 11:44 | NUR ---
PT FATHER VISITING PATIENT AT BEDSIDE. SAFETY MEASURES IN PL AMANDA. WILL CONTINUE TO MONITOR
[2020-08-18] MEDS ORDERED: VANCOMYCIN 750 MG in DEXTROSE 5% 250 ML IV SCH (12:00)
--- NOTE | 2020-08-18 12:15 | NUR ---
PATIENT'S FATHER AND FAMILY DECIDES FOR COMFORT CARE. HE WANTS TO FAMILY MEMBERS TO MEET PATIENT BEFORE COMFORT CARE. YESSY SPOKES WITH MR PARKS THE FATHER AND WAS AWARE. WILL COORDINATE WITH MAIL INSERTER AND NOTIFY .
[2020-08-18] MEDS: ALGINATE ROPE MC SCH (13:14)
--- NOTE | 2020-08-18 13:17 | NUR ---
ADMINISTERED SCHED MED PRESCRIBED PER MD ORDER. PT TOLERATED WELL. SAFETY MEASURES IN PLACE. WILL CONTINUE TO MONITOR
[2020-08-18] MEDS: ACETAMINOPHEN 650 MG/20.3 ML UDC PO PRN (14:20)
--- NOTE | 2020-08-18 15:12 | NUR ---
DR DIAZ IS ROUNDING ON PATIENT. MADE AWARE THAT FAMILY WISHES TO COMFORT CARE. DR DIAZ WAS AWARE.
--- NOTE | 2020-08-18 17:24 | NUR ---
FAMILY AT BEDSIDE VISITING PATIENT. SAFETY MEASURES IN PLACE. WILL CONTINUE TO MONITOR
--- NOTE | 2020-08-18 18:00 | NUR ---
MORE FAMILY VISITING PATIENT. TWIN SISTER AT BEDSIDE. WILL CONTINUE TO MONITOR
[2020-08-18] MEDS ORDERED: MORPHINE SULFATE 50 MG in NACL 0.9% 45 ML IV STA (18:39)
--- NOTE | 2020-08-18 19:14 | NUR ---
ENDORSED TO NIGHTSHIFT NURSE FOR CONTINUITY OF CARE Addendum: 08/18/20 at 1918 by Loretta Alvarado RN NIGHTSHIFT NURSE IS AWARE TO START MORPHINE DRIP ONCE DAUGHTER DIXIE COMES BY AND VISITS PATIENT
--- NOTE | 2020-08-18 19:20 | NUR ---
RECEIVED PATIENT ON BED WITH HOB ELEVATED TO 30 DEGREE; OBTUNDED, WITH TRACHEOSTOMY IN PLACE TO T BAR AT 7 LITERS 02 BY COOL AEROSOL, SO2 98%. CARDIACSCOPE SHOWS ON SINUS TACHY HR 102/MIN NO ARRHYTHMIAS SEEN. COMMENCING ON IVF NORMAL SALINE AT 80 ML/HR. AND LEVOPHED DRIP AT 6 MCG/MIN. VIA PICC LINE ON RIGHT UPPER ARM; PATENT AND INTACT.ABDOMEN IS SOFT; WITH GTUBE IN PLACE, HYPOACTIVE BOWEL SOUNDS. WITH PARSONS CATH IN PLACE TO GRAVITY DRAINAGE BAG DRAINING TO CLEAR YELLOW URINE OUTPUT; INTACT. WITH RECTAL TUBE IN PLACE, WITH MODERATE AMOUNT OF LOOSE TO WATERY BROWN STOOL; PATENT AND INTACT.
--- NOTE | 2020-08-18 20:00 | NUR ---
TURNED AND REPOSITIONED PATIENT.
--- NOTE | 2020-08-18 20:05 | NUR ---
VISITED BY PATIENTS SISTER DIXIE.
--- NOTE | 2020-08-18 20:12 | NUR ---
PATIENT'S FATHER WAS NOTIFIED BY PHONE AFTER THE SISTER DIXIE VISITED THE PATIENT AND HE SAID CAN NOW GO ON GIVING OR STARTING THE COMFORT MEASURES WHICH IS MORPHINE DRIP PER PROTOCOL.
--- NOTE | 2020-08-18 20:30 | NUR ---
LEVOPHED DRIP TITRATED DOWN TO 4 MCG/MIN PER PROTOCOL.
--- NOTE | 2020-08-18 21:00 | NUR ---
SEEN BYDR. LLOYD, UPDATED ON PATIENT'S MEDICAL CONDITION; NO NEW ORDER MADE.
--- NOTE | 2020-08-18 21:30 | NUR ---
HR 106; MORPHINE DRIP INCREASED TO 5 MG/HR.
--- NOTE | 2020-08-18 23:30 | NUR ---
TRANSFERRED TO MED SURG ROOM 124 PER BED FOR CONTINUITY OF CARE.
--- NOTE | 2020-08-18 23:31 | NUR ---
RECD. FROM ICU FOR CONTINUITY OF CARE PATIENT IS LETHARGIC, APHASIC. EYES CLOSED MOST OF THE TIME, OPENS ONLY WHEN STRONG STIMULI APPLIED. WITH TRACHEOSTOMY IN PLACED CONNECTED TO T BAR AT 6 LITERS OXYGEN WITH HUMIDIFIER, 02 SATURATION AT 98 - 100%. IV OF NS INFUSING AT 80 ML/HR AND MORPHINE DRIP INFUSING AT 5 MG/HR CONNECTED TO RIGHT UPPER ARM PICC LINE.SALINE LOCK AT THE RIGHT HAND G20, PATENT AND INTACT. ABDOMEN WITH HYPO BOWEL SOUNDS WITH GT IN PLACED WITH GAUZE DRESSING. F/C PATENT DRAINING CLEAR YELLOW URINE. RECTAL BAG WITH MODERATE AMOUNT OF LIQUID BROWN STOOLS. PATIENT IS CONTRACTED. WITH SACROCOCCYGEAL WOUND COVERED WITH DRESSING DRY AND INTACT. PATIENT IS DNR, FOR COMFORT MEASURES ONLY. NO APPEARANCE OF PAIN NOTED, FLACC - 0.
--- NOTE | 2020-08-18 23:53 | NUR ---
LEVOPHED DRIP TAPER AND DISCONTINUED. Addendum: 08/18/20 at 2356 by Gia Summers RN CORRECTION: LEVOPHED DRIP TAPER AND DISCONTINUED AT 2230 H.
[2020-08-19] VITALS: BP 102/63
[2020-08-19] MEDS: HYDRAGUARD CREAM TP SCH ×2 (01:00→12:37)
[2020-08-19] MEDS: NACL 0.9% 1,000 ML IV SCH ×2 (01:59→05:53)
--- NOTE | 2020-08-19 02:00 | NUR ---
COMFORTABLE IN BED, RESPIRATION EVEN AND UNLABORED. 02 SAT - 100%. WILL CONTINUE TO MONITOR.
--- NOTE | 2020-08-19 03:55 | NUR ---
Patient's Plan of Care was discussed and reviewed with ORTHOTIST/PROSTHETIST: EDWARD GARDINER
[2020-08-19 04:00] VITALS: BP 123/68
--- NOTE | 2020-08-19 04:00 | NUR ---
RESTING IN BED, HOB ELEVATED 30 DEGREES. RESPIRATION EVEN AND UNLABORED. NO APPEARANCE OF PAIN OR DISCOMFORT NOTED, FLACC -0.
--- NOTE | 2020-08-19 04:19 | NUR ---
NEW BAG OF MORPHINE FOR MORPHINE DRIP STARTED AT 0415.UNABLE TO SIGN IN EMAR.DID NOT LET ME SIGN AND SAID IT IS ONLY ONE TIME ORDER.RATE STILL IS 5 ML/H(5MG/H).PT IS STABLE HR IS BELOW 100 AND RESP IS UNLABORED.WILL CONTINUE MONITORING.
--- NOTE | 2020-08-19 05:00 | NUR ---
WITH PRODUCTIVE COUGHING, TRACHEAL SUCTIONING DONE. ABLE TO OBTAIN MODERATE AMOUNT OF CREAMY PHLEGM.
--- NOTE | 2020-08-19 06:00 | NUR ---
ORAL CARE DONE, MADE COMFORTABLE IN BED WITH PILLOWS. NO CHANGED IN THE AMOUNT OF STOOL IN THE RECTAL BAG SINCE THE BEGINNING OF SHIFT.
[2020-08-19 06:52] LABS: ANION GAP 7.8 (8-16); CARBON DIOXIDE 27.4 mmol/L (21-32); MAGNESIUM 1.6 mg/dL (1.8-2.4); POTASSIUM 3.2 mmol/L (3.5-5.1); TOTAL BILIRUBIN 0.5 mg/dL (0.0-1.0)
--- NOTE | 2020-08-19 07:25 | NUR ---
RECEIVED REPORT FROM PELLET MACHINE OPERATOR NURSE. PATIENT LYING DOWN IN BED. ON TRACH TO T-TUBE, COMFORT MEASURES WITH MORPHINE DRIP. NO DISTRESS NOTED. DONG PICC LINE IN PLACE, INTACT. SAFETY MEASURES IN PLACE, CALL LIGHT WITHIN REACH. WILL CONTINUE TO MONITOR.
[2020-08-19] MEDS: MORPHINE SULFATE 50 MG in NACL 0.9% 45 ML IV PRN ×2 (07:30→14:38)
[2020-08-19 08:00] VITALS: BP 108/73
[2020-08-19] MEDS: LACTOBACILLUS RHAMNOSUS GG 1 EACH CAP PO SCH (09:00)
[2020-08-19] MEDS: ASCORBIC ACID 500 MG/5 ML ORASYR GT SCH (09:00)
[2020-08-19] MEDS: PANTOPRAZOLE 40 MG INJ VIAL IVP SCH (09:00)
[2020-08-19] MEDS: MULTIVITAMIN 1 TAB PO SCH (09:00)
--- NOTE | 2020-08-19 09:41 | NUR ---
PATIENT ON COMFORT MEASURES WITH MORPHINE DRIP AND DNR. SCHEDULED MEDICATIONS NOT GIVEN AT THIS TIME. PATIENT REMAINS ON TRACH TO T-TUBE WITH FIO2 28% WITH O2 SAT AT 100%. WILL CONTINUE TO MONITOR.
--- NOTE | 2020-08-19 10:20 | NUR ---
[facility] SERVICES NO LONGER NEEDED, PLEASE CONTACT RD IF THERE ARE ANY CHANGES IN STATUS.
[2020-08-19] MEDS: ACETAMINOPHEN 650 MG/20.3 ML UDC PO PRN (11:16)
--- NOTE | 2020-08-19 11:16 | NUR ---
PATIENT HAS FEVER, 100.9. COOLING MEASURES IN PLACE AND ADMINISTERED TYLENOL. WILL CONTINUE TO MONITOR.
[2020-08-19] MEDS: ALGINATE ROPE MC SCH (12:36)
--- NOTE | 2020-08-19 13:42 | NUR ---
CLEANED AND REPOSITIONED PATIENT WITH STEELSCOPE OPERATOR. WILL CONTINUE TO MONITOR.
[2020-08-19 16:00] VITALS: BP 108/73
--- NOTE | 2020-08-19 16:55 | NUR ---
TITRATE PT OXYGEN TO ROOM AIR PER DR DIAZ ORDER. SPO2 94%.
--- NOTE | 2020-08-19 19:30 | NUR ---
RECEIVED BEDSIDE REPORT EARLIER FROM DAY RN FOR CONTINUITY OF CARE. PATIENT EYES OPEN , NON VERBAL. PATIENT HAS TRACHEOSTOMY CONNECTED TO T BAR, SATING 82% ON RA. PATIENT NOT ON ANY DISTRESS.PATIENT ON COMFORT CARE AND MORPHINE DRIP INFUSING ORDERED.FALL PRECAUTION IMPLEMENTED. BED IN LOW POSITION, SIDE RAILS UP X2 AND BED ALARM ON. PER [facility] RN REPORT PATIENT FAMILY SUPPOSE TO COME AND VISIT TONIGHT.CALL LIGHT WITHIN REACH. WILL CONTINUE PLAN OF CARE.
--- NOTE | 2020-08-19 19:35 | NUR ---
GAVE REPORT TO FIREARMS ASSEMBLY SUPERVISOR NURSE FOR CONTINUITY OF CARE. PATIENT IN STABLE CONDITION.
--- NOTE | 2020-08-19 19:50 | NUR ---
PATIENT FATHER CALLED AND WANTED AN UPDATE WITH THE PATIENT CONDITION. UPDATED THE PATIENT FATHER WITH THE PATIENT CONDITION.
[2020-08-19 20:00] VITALS: BP 112/59
[2020-08-19] MEDS: MORPHINE SULFATE 100 MG in NACL 0.9% 100 ML IV PRN (21:15)
--- NOTE | 2020-08-19 21:40 | NUR ---
PATIENT SISTER ANTONIOMIYA AT THE BEDSIDE AND ALSO UPDATED THE PATIENT SISTER OF THE PATIENT CONDITION AND PLAN OF CARE.
--- NOTE | 2020-08-19 22:45 | NUR ---
Patient sister just left the bedside. Repositioned and suctioned the patient.
[2020-08-20] MEDS: HYDRAGUARD CREAM TP SCH ×2 (01:13→13:01)
--- NOTE | 2020-08-20 01:30 | NUR ---
REPOSITIONED AND CHANGED THE PATIENT SACRAL DRESSING AND CLEANED THE WOUND ORDERED AND PUT HYDRAGUARD. REPOSITIONED FOR COMFORT.
--- NOTE | 2020-08-20 03:30 | NUR ---
PATIENT ASLEEP . VISIBLE SYMMETRICAL CHEST RISE AND FALL NOTED. PT REMAINS ON MORPHINE DRIP @ 8MG/HR. WILL CONTINUE TO OBSERVE THE PT.
[2020-08-20 04:00] VITALS: BP 113/68
--- NOTE | 2020-08-20 04:30 | NUR ---
PATIENT VSS, AFEBRILE, SATING 94% ON RA. NOT IN ANY DISTRESS. SAFETY MEASURES IN PLACED.
--- NOTE | 2020-08-20 06:23 | NUR ---
PATIENT STABLE. NOT IN ANY DISTRESS. ALL NEEDS ATTENDED. CALL LIGHT WITHIN REACH. WILL ENDORSE THE PATIENT TO THE ONCOMING RN FOR CONTINUITY OF CARE.
--- NOTE | 2020-08-20 07:16 | NUR ---
PATIENT STABLE. ENDORSED THE PATIENT TO DAY RN NISREEN FOR CONTINUITY OF CARE. SIGNING OFF.
--- NOTE | 2020-08-20 07:25 | NUR ---
PT RECEIVED FROM EXPLORATION GEOLOGIST RN. PT LAYING IN BED. NO S S/S OF DISTRESS AT THIS TIME. MORPHINE DRIP RUNNING AY 8MG/ HR CALL LIGHT IS WITHIN REACH ALL SAFETY MEASURES ARE IN PLACE. PT STILL ON COMFORT MEASURES WILL CONTINUE TO MONITOR.
--- NOTE | 2020-08-20 08:04 | NUR ---
PT ASSESSED. PT ON ROOM AIR 78-81% O2%. ALL COMFORT AND SAFETY MEASURES ARE IN PLACE.
--- NOTE | 2020-08-20 08:15 | NUR ---
RT AT BEDSIDE.
--- NOTE | 2020-08-20 08:43 | NUR ---
PT WAS SUCTIONED AND REPOSITIONED FOR COMFORT. PT TOLERATED WELL. 84% O2
[2020-08-20] MEDS: MORPHINE SULFATE 100 MG in NACL 0.9% 100 ML IV PRN ×2 (09:28→23:00)
--- NOTE | 2020-08-20 09:36 | NUR ---
MORPHINE DRIPPED CHANGED. VERIFIED BY TWO RN. PT EDUCATED PT APHASIC AND UNABLE TO VERBALIZE UNDERSTANDING . ALL SAFETY MEASURES ARE IN PLACE. PT 02% AT 88%.
--- NOTE | 2020-08-20 10:00 | NUR ---
PATIENT IS COMFORT CARE, OXYGEN HAS BEEN TURNED OFF PER MD ORDER, PT IS ON ROOM AIR, AND RN DOSING PAIN MEDICATION FOR COMFORT.
--- NOTE | 2020-08-20 10:20 | NUR ---
PT REPOSITIONED. PT TOLERATED WELL. SUCTIONED FOR COMFORT.
--- NOTE | 2020-08-20 11:02 | NUR ---
PT RESTING IN BED COMFORTABLY. PT AT 91% OXYGEN SATURATION ON ROOM AIR. 103 PULSE. COMFORT MEASURES ARE IN PLACE. CALL LIGHT IS WITHIN REACH ALL SAFETY MEASURES IN PLACE.
[2020-08-20] MEDS: ALGINATE ROPE MC SCH (13:01)
--- NOTE | 2020-08-20 13:02 | NUR ---
PT APPLIED HYDRAGUARD DRESSING ON BOTTOM CHANGED.
--- NOTE | 2020-08-20 13:44 | NUR ---
PT REASSESSED. BP 107/60 11 89% ROOM AIR 100.1 TEMPERATURE. PULSE 105, RR: 18
--- NOTE | 2020-08-20 14:41 | NUR ---
PT RESTING IN BED COMFRTABLY. BP 93/58 88% OXYGEN. ALL SAFETY MEASURES ARE IN PLACE.
--- NOTE | 2020-08-20 15:09 | NUR ---
BP 111/62 02%=87
[2020-08-20 16:00] VITALS: BP 107/60
--- NOTE | 2020-08-20 17:11 | NUR ---
PT RESTIN IN BED NO S/S OF DISTRESS. BP 114/ 64, 02% 89. ALL SAFETY MEASURES ARE IN PLACE.
--- NOTE | 2020-08-20 18:53 | NUR ---
PT IN BED RESTIN. COMFORT MEASURES ARE STILL IN PLACE. NO S/S OF DISTRESS AT THIS TIME.
--- NOTE | 2020-08-20 19:30 | NUR ---
RECEIVED REPORT FROM OSMIN OAKES DAYSHIFT NURSE AT BEDSIDE FOR CONTINUITY OF CARE, PT IS AOX1 HOB UP 35%, HE IS ON ROOM AIR. HE IS A TRACH TO VENT WITH TRACH PIECE. ALL ASPIRATION PRECAUTIONS IN PLACE. PT IS BEDBOUND AND CONTINUES ON COMFORT CARE. HE HAS A RIGHT UPPER PICC RUNNING A MORPHINE GTT AT 8MLS/HR. PT ALSO HAS A G TUBE INTACT NO FEEDING RUNNING AT THIS TIME DUE TO COMFORT CARE. PT ALSO HAS A 20G ON RIGHT HAND WHICH IS SALINE LOCKED. PT HAS PARSONS CATHETER WHICH IS DRAINING TAYLOR YELLOW URINE AND HE HAS A RECTAL TUBE IN PLACE, NO BM NOTED. ALL FALLS PRECAUTIONS IN PLACE.
--- NOTE | 2020-08-20 20:30 | NUR ---
PT V/S FOLLOWS: T 100.8 P 121 R 29 B/P 122/71 02 88%. PT WAS GIVEN COOLING MEASURES OF BED BATH AND ICE PACKS. PT WAS ALSO TURNED AND REPOSITIONED IN BED WELL SUCTIONED AND ORAL CARE PROVIDED. PT CONTINUES ON MORPHINE GTT AT 8MLS/HR. ALL ORDERED PRECAUTIONS IN PLACE.
[2020-08-20] MEDS: ACETAMINOPHEN 650 MG/20.3 ML UDC PO PRN (22:09)
--- NOTE | 2020-08-20 22:10 | NUR ---
PT WAS GIVEN LIQUID TYLENOL FOR GENERALIZED DISCOMFORT DUE TO INCREASED TEMPERATURE. PT WAS ALSO SUCTIONED AND ORAL CARE PROVIDED. 02 RANGING BETWEEN 88-91%. CONTACT PRECAUTIONS IN PLACE DUE TO MDRO AND OCEAN FREIGHT MANAGER OF THE SPUTUM. ALL ORDERED PRECAUTIONS IN PLACE.
--- NOTE | 2020-08-20 23:00 | NUR ---
MORPHINE BAG REPLACED WASTE OF 5MLS/DOCUMENTED BY MYSELF AND UJAN OAKES ORIENTEE FROM OLD BAG OF MORPHINE. PT WAS SUCTIONED AND ORAL CARE PROVIDED.
--- NOTE | 2020-08-20 23:30 | NUR ---
RATE WAS INCREASED TO 9MLS/HR DUE TO PT DISCOMFORT OF GRIMACING AND INCREASED HEART RATE. PT HEART RATE DECLINED TO 111 AND 02 TO 91% ON ROOM AIR. ALL ORDERED PRECAUTIONS IN PLACE. PT APPEARS MORE COMFORTABLE. WILL CONTINUE TO MONITOR PT VITALS SIGNS, AIRWAY NEEDS AND COMFORT LEVEL.
[2020-08-21] VITALS: BP 122/71
[2020-08-21] MEDS: HYDRAGUARD CREAM TP SCH ×2 (01:15→13:36)
--- NOTE | 2020-08-21 04:42 | NUR ---
ROUNDED ON PATIENT. PATIENT IS RESTING COMFORTABLY IN BED, WITH NO SIGNS OF ACUTE DISTRESS. O2 STAT AT 94%, HEART RATE AT 102. SAFETY MEASURES IN PLACE. WILL CONTINUE TO MEASURE.
--- NOTE | 2020-08-21 07:16 | NUR ---
PATIENT ENDORSED TO DAY SHIFT FOR CONTINUITY OF CARE. PATIENT IN STABLE CONDITION.
--- NOTE | 2020-08-21 07:20 | NUR ---
RECEIVED BEDSIDE ENDORSEMENT FROM [facility] FOR CONTINUITY OF CARE.
[2020-08-21 08:00] VITALS: BP 85/56
--- NOTE | 2020-08-21 08:05 | NUR ---
(08/21/20) RD FOLLOW UP COMPLETED PLEASE REFER TO NUTRITION PROGRESS NOTE UNDER CARE ACTIVITY FOR ESTIMATED NUTRITION NEEDS. RD RECOMMENDATIONS: CONTINUE ON COMFORT CARE PER RESPONSIBLE REPUBLICAN WISHES. CONSULT RDN PRN. 3. RD TO FOLLOW-UP 5-7 DAYS, LOW RISK FLORIAN PACHECO MS, RDN
--- NOTE | 2020-08-21 10:08 | NUR ---
PATIENT RESTING IN BED, OPENS EYES SPONTANEOUSLY. PATIENT ON MORPHINE CONTINUOUS 9MG/HR. COMFORT CARE MEASURES PROVIDED. SAFETY MEASURES IN PLACE. WILL CONTINUE TO MONITOR.
[2020-08-21] MEDS: MORPHINE SULFATE 100 MG in NACL 0.9% 100 ML IV PRN (10:15)
--- NOTE | 2020-08-21 11:17 | NUR ---
PATIENT SISTER AT BEDSIDE VISIT. PATIENT SHOWING NO SIGNS OF DISTRESS. SAFETY MEASURES IN PLACE. WILL CONTINUE TO MONITOR.
[2020-08-21] MEDS: ALGINATE ROPE MC SCH (13:36)
--- NOTE | 2020-08-21 13:36 | NUR ---
ASSISTED TREE SHEAR OPERATOR W/ DAILY CARES. PATIENT TOLERATED WELL. SAFETY MEASURES IN PLACE. WILL CONTINUE TO MONITOR.
[2020-08-21] MEDS ORDERED: ACETAMINOPHEN 325 MG TAB GT PRN (15:00)
[2020-08-21] MEDS ORDERED: MORPHINE SULFATE 4 MG/ML SYR IVP PRN (15:00)
[2020-08-21] MEDS: POTASSIUM CHL 10 MEQ/D5-1/2NS 1,000 ML IV SCH (15:00)
[2020-08-21] MEDS ORDERED: MORP10SO PO (15:08)
[2020-08-21 16:00] VITALS: BP 118/73
--- NOTE | 2020-08-21 16:08 | NUR ---
HOSPICE REFERRAL ORDER NOTIFIED TO MS DICKERSON AT [phone], REQUESTED INFO FAXED TO [phone].
--- NOTE | 2020-08-21 16:17 | NUR ---
ADMINISTERED PRESCRIBED MEDS PER MD ORDER. PATIENT TOLERATING WELL. MEDICATION EDUCATION REINFORCEMENT NEEDED, PATIENT APHASIC. TRACH CARE PROVIDED. SAFETY MEASURES IN PLACE. WILL CONTINUE TO MONITOR.
--- NOTE | 2020-08-21 18:34 | NUR ---
PATIENT ROUNDING PERFORMED. PATIENT AWAKE IN BED, EYES OPENED. TRACH CARE PERFORMED. PATIENT SHOWS NO SIGNS OF DISCOMFORT/PAIN. SAFETY MEASURES IN PLACE. WILL CONTINUE TO MONITOR.
--- NOTE | 2020-08-21 19:19 | NUR ---
BEDSIDE ENDORSEMENT PROVIDED TO NIGHTSHIFT NURSE FOR CONTINUITY OF CARE.
--- NOTE | 2020-08-21 19:20 | NUR ---
RECEIVED BEDSIDE REPORT FROM DAY SHIFT NURSE, NOE OAKES, FOR CONTINUITY OF CARE. PT IS APHASIC AND BEDBOUND. PT OPENS EYES WHEN CALLING NAME. PT IS NONVERBAL. PT IS TRACH TO T BAR ON RA. O2 SAT IS 90%. ST ON TELE MONITORING. G TUBE IN PLACE, NO FEEDING CURRENTLY RUNNING. APRSONS CATH IN PLACE. SACRAL WOUND WITH DRY DRESSING INTACT. SKIN IS WARM AND DRY. RECTAL TUBE IN PLACE. RIGHT UPPER ARM PICC LINE AND RIGHT HAND [address]. PICC LINE IS INFUSING D5 HALF NS WITH POTASSIUM AT 75 ML PER HOUR PER ORDER. CONTACT PRECAUTIONS FOR MDRO/SALES TECHNICIAN SPUTUM. FALL PRECAUTIONS IN PLACE. PT IS STABLE AT THIS TIME. PLAN OF CARE DISCUSSED.
[2020-08-21 20:00] VITALS: BP 108/61
[2020-08-21] MEDS: CHLORHEXIDINE GLUCONATE 0.12% 473 ML LIQ MM SCH (21:00)
[2020-08-21] MEDS ORDERED: NON-FORMULARY ITEM (Chlorhexidine Gluconate (Periogard 480 Ml) 15 ML) PO SCH (21:00)
--- NOTE | 2020-08-21 21:00 | NUR ---
G TUBE FEEDING WAS STARTED ORDERED. VITAL AF 1.2 AT 40 ML PER HOUR WITH WATER FLUSHED 115 ML Q4H. G TUBE RESIDUAL WAS LESS THAN 5 ML. ORAL ORAL CARE WAS PROVIDED. PT WAS ALSO SUCTIONED FROM THE TRACH. O2 SAT IS 92% AFTER SUCTIONING. CREAMY, WHITE SECRETIONS WERE EXCRETED FROM TRACH. PT TOLERATED THIS WELL. COUGHING WAS PRESENT. IV WAS REINFORCED ON THE RIGHT HAND AND NEW DRESSING WAS APPLIED. PT IS STABLE AT THIS TIME, NO RESPIRATORY DISTRESS NOTED. FLACC 0.
[2020-08-21] MEDS: levETIRAcetam 100 MG/ML ORASYR GT SCH (21:13)
[2020-08-21] MEDS: DOCUSATE 100 MG/10 ML UDC PO SCH (21:14)
--- NOTE | 2020-08-21 23:00 | NUR ---
PT IS REPOSITIONED. LINENS ARE CLEAN AND DRY. RECTAL TUBE IS IN PLACE. G TUBE FEEDING IS RUNNING ORDERED. IV FLUIDS ARE INFUSING AND PICC LINE IS PATENT IN THE RIGHT UA. BREATHING IS UNLABORED. O2 SAT IS 94% TRACH TO TPIECE. WILL CONTINUE TO MONITOR PT.
--- NOTE | 2020-08-22 01:00 | NUR ---
ORAL CARE WAS PROVIDED. PT WAS REPOSITIONED. PILLOWS USED TO SUPPORT BONY REGIONS. G TUBE RESIDUAL WAS LESS THAN 5 ML. BREATHING IS UNLABORED ON RA. NO RESPIRATORY DISTRESS NOTED.
[2020-08-22] MEDS: HYDRAGUARD CREAM TP SCH ×2 (01:19→13:48)
--- NOTE | 2020-08-22 02:45 | NUR ---
ROUNDED ON PT. O2 SAT IS 92% ON TRACH TO T PIECE. NO RESPIRATORY DISTRESS NOTED. NO COUGHING. PT IS CALM AND ASLEEP. WILL CONTINUE TO MONITOR.
--- NOTE | 2020-08-22 04:08 | NUR ---
PT WAS COUGHING AND SOUNDS CONGESTED. CREAMY, WHITE SECRETIONS VISIBLE IN T PIECE. PT WAS SUCTIONED THROUGH TRACH AND ORALLY. A MODERATE AMOUNT OF CREAMY, WHITE SECRETIONS WERE EXPELLED. PT'S O2 SAT IS 94% ON TRACH TO T PIECE ON RA. PT IS STABLE. NO DISTRESS NOTED.
[2020-08-22] MEDS: POTASSIUM CHL 10 MEQ/D5-1/2NS 1,000 ML IV SCH ×2 (04:32→18:23)
--- NOTE | 2020-08-22 06:00 | NUR ---
PT WAS CHANGED AND REPOSITIONED. NO RESPIRATORY DISTRESS NOTED. O2 SAT IS 96%. BREATHING IS UNLABORED. NO COUGHING AT THIS TIME. FLACC 0. GTUBE RESIDUAL IS LESS THAN 5 ML. PT IS STABLE.
--- NOTE | 2020-08-22 07:20 | NUR ---
ENDORSED PT TO DAY SHIFT NURSE FOR CONTINUITY OF CARE. PT IS STABLE AT THIS TIME. O2 SAT IS 95% ON TRACH TO T PIECE ON RA. PLAN OF CARE DISCUSSED.
[2020-08-22 08:00] VITALS: BP 118/78
--- NOTE | 2020-08-22 08:00 | NUR ---
PT RECEIVED FORM FLIGHT CREW TIME CLERK RN. PT RESTING IN BED COMFORTABLY. NO S/S OF DISTRESS AT THIS TIME. EASY TO AROUSE. MO S/S OF DISTRESS AT THIS TIME. WILL CONTINUE TO MONITOR.
--- NOTE | 2020-08-22 08:30 | NUR ---
CALLED BENNY FROM [facility], CELLPHONE: [phone], TO CHECK HOSPICE STATUS OF PATIENT. PER BENNY, SHE WILL CALL [facility] TO FOLLOW-UP ON BED. BENNY TO CALL US BACK AFTER TALKING WITH [facility]. WILL CONTINUE TO MONITOR.
[2020-08-22] MEDS ORDERED: NON-FORMULARY ITEM (Multivitamin with Minerals (Multivitamins with Minerals) 1 TAB) GT/PO SCH (09:00)
[2020-08-22] MEDS: levETIRAcetam 100 MG/ML ORASYR GT SCH ×2 (09:28→20:33)
[2020-08-22] MEDS: ASCORBIC ACID 500 MG/5 ML ORASYR GT SCH (09:29)
[2020-08-22] MEDS: DOCUSATE 100 MG/10 ML UDC PO SCH ×2 (09:29→20:32)
[2020-08-22] MEDS: MULTIVITAMIN/MINERALS 1 TAB GT SCH (09:29)
[2020-08-22] MEDS: CHLORHEXIDINE GLUCONATE 0.12% 473 ML LIQ MM SCH ×2 (09:32→21:00)
--- NOTE | 2020-08-22 09:35 | NUR ---
MEDICATIONS ADMINISTERED PER MD ORDER. PT EDUCATED. PT UNABLE TO VERBALIZE UNDERSTANDING. REINFORCEMENT NEEDED. RESIDUALS CHECKED 0 ML AT THIS TIME. NO S/S OF DISTRESS. CALL LIGHT WITHIN REACH. G TUBE FEEDINGS ARE RUNNING PER MD ORDER. PT SUCTIONED AND CHLORHEXIDINE BATH DONE.
--- NOTE | 2020-08-22 11:02 | NUR ---
BENNY FROM [facility] CALLED TO FOLLOW-UP. PER BENNY, [facility] [place] WANTS PROGRESS NOTE, HOSPICE AND D/C ORDER FAXED TO THEM AT [phone]. BENNY WILL CONTINUE TO FOLLOW-UP WITH [facility] [place] AND CALL US BACK WHEN EVERYTHING IS SETUP. WILL CONTINUE TO MONITOR.
--- NOTE | 2020-08-22 11:49 | NUR ---
PT RESTING IN BED COMFORTABLY. PARSONS CARE DONE PER PROTOCOL. NO S/S OF DISTRESS AT THIS TIME. WILL CONTINUE TO MONITOR.
[2020-08-22 11:51] VITALS: BP 118/78
--- NOTE | 2020-08-22 13:02 | NUR ---
PTS WOUND CARE DONE PER MD ORDER PT REPOSITIONED. PT TOLERATED WELL. NO S/S OF DISTRESS AT THIS TIME. PT SUCTIONED FOR COMFORT.
[2020-08-22] MEDS: ALGINATE ROPE MC SCH (13:47)
--- NOTE | 2020-08-22 15:00 | NUR ---
SPOKE WITH BENYN FROM [facility]. PER BENNY, [facility] [place]IENT IN THEIR SUBACUTE UNIT. BENNY TALKED WITH PATIENT'S FATHER, JULIO . AND PER FATHER , STILL WANTS PATIENT ON HOSPICE. BENNY TO CONTINUE LOOKING FOR ANOTHER SNF WHO WILL ACCEPT PATIENT WITH HOSPICE. BENNY NOTIFIED DR. DIAZ REGARDING PRESENT SITUATION.
--- NOTE | 2020-08-22 15:29 | NUR ---
PT RESTING IN BED. SUCTIONED AND PULLED UP. PT 97% O2%.
[2020-08-22 16:00] VITALS: BP 137/89
--- NOTE | 2020-08-22 17:00 | NUR ---
PT SUCTIONED AND REPOSITIONED. PT TOLERATED WELL. AT BEDSIDE
--- NOTE | 2020-08-22 18:50 | NUR ---
PT RESTING IN BED COMFORTABLY. NO S/S OF DISTRESS AT THIS TIME. PT SUCTIONED.
--- NOTE | 2020-08-22 19:30 | NUR ---
PT ENDORSED TO SOURCE WATER PROTECTION SPECIALIST RN. NO S/S OF DISTRESS.
--- NOTE | 2020-08-22 19:31 | NUR ---
RECD. RESTING IN BED, WITH EYES CLOSED, APHASIC. RESPIRATION EVEN AND UNLABORED. HEAD OF BED ELEVATED 35 DEGREES. SIDE RAILS WITH PADS FOR SEIZURE PRECAUTION. WITH TRACHEOSTOMY TUBE, INTACT. NOTED SMALL AMOUNT OF CREAMY WHITE SECRETIONS. ON ROOM AIR, 02 SATURATION 95%. ON GT FEEDING OF VITAL AF INFUSING AT 40 ML/HR. IV OF D5 0.45% WITH 10 MEQ KCL INFUSING AT 75 ML/HR, LEFT UPPER ARM PICC LINE. WITH RIGHT HAND G20, SALINE LOCK PATENT AND INTACT. WITH F/C PATENT DRAINING CLEAR YELLOW URINE. WITH RECTAL TUBE, NO NOTED LIQUID STOOLS FLOWING IN THE TUBE ONLY MODERATE AMOUNT OF BROWN LIQUID STOOLS IN THE BAG. NO APPEARANCE OF PAIN NOTED, FLACC -0.
[2020-08-22 20:00] VITALS: BP 137/85
--- NOTE | 2020-08-22 20:32 | NUR ---
SCHEDULED MEDICATIONS FOR THE NIGHT GIVEN VIA GT.
--- NOTE | 2020-08-22 21:00 | NUR ---
WITH COUGHING, SUCTIONING DONE. ABLE TO OBTAINED MODERATE AMOUNT OF CREAMY SECRETIONS. 02 SAT - 94%.
--- NOTE | 2020-08-22 23:30 | NUR ---
RT CAME AND SUCTIONED PATIENT. 02 SAT - 97%.
--- NOTE | 2020-08-23 00:30 | NUR ---
RESTING IN BED COMFORTABLY SLEEPING. 02 SAT - 97% ON ROOM AIR.
[2020-08-23] MEDS: HYDRAGUARD CREAM TP SCH ×2 (01:29→13:00)
--- NOTE | 2020-08-23 03:00 | NUR ---
NO RESIDUAL NOTED. CHANGED GT FEEDING BAG.
--- NOTE | 2020-08-23 04:30 | NUR ---
RT CAME AND CHANGED TRACH CANNULA AND GAUZE DRESSING.
--- NOTE | 2020-08-23 05:00 | NUR ---
WITH COUGHING, SUCTIONING DONE. MINIMAL AMOUNT OF CREAMY COLORED PHLEGM OBTAINED. 02 SAT - 94%.
--- NOTE | 2020-08-23 06:00 | NUR ---
RECTAL TUBE OUT OF THE RECTUM. NOTED SMALL AMOUNT OF LOOSE YELLOW BM AT THE BEGINNING OF THE TUBE. NOTHING HAVE DRAIN IN THE RECTAL BAG.
[2020-08-23] MEDS: POTASSIUM CHL 10 MEQ/D5-1/2NS 1,000 ML IV SCH (07:00)
--- NOTE | 2020-08-23 07:25 | NUR ---
CONDITION REMAIN STABLE. ENDORSED TO AM SHIFT NURSE FOR CONTINUITY OF CARE.
--- NOTE | 2020-08-23 07:30 | NUR ---
REC'D REPORT FROM ENVIRONMENTAL WEB CRAWLER NUSE, PT IS APHASIC, HAS TRACHEOSTOMY, ROOM AIR, GTUBE FEEDING VITAL AF AT 40ML/HR, R. UA DOUBLE LUMEN PICC. INFUSING D5/.045NS WITH 10 MEQ POTASSIUM AT 75NL/HR. SUCTIONED PT D/T COUGH, MINIMAL SECRETIONS NOTED. PT TOLERATED PROCEDURE WELL. HAS URINARY INDWELLING URINARY CATHETER . CLEAR, DARK YELLOW URINE NOTED. ALL SAFETY MEASURES IN PLACE. WILL CONTINUE TO MONITOR.
[2020-08-23 08:00] VITALS: BP 133/86
[2020-08-23] MEDS: MULTIVITAMIN/MINERALS 1 TAB GT SCH (08:48)
[2020-08-23] MEDS: levETIRAcetam 100 MG/ML ORASYR GT SCH (08:49)
[2020-08-23] MEDS: DOCUSATE 100 MG/10 ML UDC PO SCH (08:49)
[2020-08-23] MEDS: ASCORBIC ACID 500 MG/5 ML ORASYR GT SCH (08:49)
[2020-08-23] MEDS: CHLORHEXIDINE GLUCONATE 0.12% 473 ML LIQ MM SCH (09:00)
--- NOTE | 2020-08-23 09:08 | NUR ---
ADMINISTERED MEDICATIONS PER MD ORDER, MOA AND SIDE EFFECTS EXPLAINED TO PT WHO CANNOT VERBALIZE UNDERSTANDING, GTUBE INSERTION SITE COVERED WITH DRY DRESSING, NO DISCHARGE NOTED. 5ML RESIDUAL, FLUSHED WITH 30 STERILE WATER, ADMINISTERED MEDICATIONS AND FLUSHED WITH 30ML STERILE WATER AFTER MEDICATION ADMINISTRATION. PT TOLERATED PROCEDURE WELL.
--- NOTE | 2020-08-23 10:36 | NUR ---
PERFORMED TRACH SUCTION. PT TOLERATED PROCEDURE WELL.
[2020-08-23] MEDS: ALGINATE ROPE MC SCH (13:00)
--- NOTE | 2020-08-23 15:24 | NUR ---
PT STABLE NO SIGN OF DISTRESS
[2020-08-23 16:00] VITALS: BP 118/76
--- NOTE | 2020-08-23 17:38 | NUR ---
DISCHARGED PT VIA [facility], COPY OF CHART GIVEN TO ART TO TAKE WITH PT. PT'S PICC REMOVED, NO RESISTANCE, APPLIED 2X2 BANDAGE. ID BAND REMOVED, IV CATHETER R. HAND REMOVED INTACT. CALLED IN REPORT TO FAUSTO AT [facility] [place]. GTUBE FEEDING DISCONNECTED, STOMA DRY, CLEAN. PT STABLE UPON DISCHARGE
[2020-08-24] MEDS ORDERED: SCOPOLAMINE 1.5 MG/72 HR PATCH TD SCH (09:00)
== END 2020-08-23 17:30 | DRG 871 ==
LOC: MED 16:36 → MIC 20:40 → EEVIPCON 20:40 → MTU 08-18 23:30
PROVIDERS: ADMIT Hospitalist; ATTEND Hospitalist
DX: A41.9 Sepsis, unspecified organism (principal); R65.21 Severe sepsis with septic shock; N17.0 Acute kidney failure with tubular necrosis; K72.00 Acute and subacute hepatic failure without coma; J18.9 Pneumonia, unspecified organism; G93.1 Anoxic brain damage, not elsewhere classified; D68.69 Other thrombophilia; J96.11 Chronic respiratory failure with hypoxia; Z20.822 Contact with and (suspected) exposure to COVID-19; G40.909 Epilepsy, unspecified, not intractable, without status epilepticus; R13.10 Dysphagia, unspecified; Z90.5 Acquired absence of kidney; R31.9 Hematuria, unspecified; R74.01 Elevation of levels of liver transaminase levels; Z93.0 Tracheostomy status; E83.42 Hypomagnesemia; E87.6 Hypokalemia; Z51.5 Encounter for palliative care; N30.91 Cystitis, unspecified with hematuria
CPT/HCPCS: 36415; 36556; 36600; 51702; 71045; 76770; 80053; 80202; 81001; 82803; 83605; 83690; 83735; 85025; 85610; 85730; 86886; 86900; 86901; 87040; 87070; 87081; 87086; 87186; 87205; 96361; 96365; 96367; 99291; A4649; C9113; J0456; J0610; J0696; J2270; J2543; J3370; J3475; J3480; J3490; J7030; J7060

== ENCOUNTER 2022-02-26 00:36 | Inpatient (IN) | payer OTHER, MEDICAID ==
[~2022-02-26] VITALS: Ht 182.9 cm; Wt 81.2 kg
[~2022-02-26 00:36] MED LIST changes: -ALBU0.0912 IH; -ATRMDI IH; -LEVE100S26 GT; -LOV40I SUBQ; -MAGN400S60 GT/PO; +MORP10SY PO; -MULT-1328 GT; -PIPE1PDS26 IV; -POLY15SO74 OP; -PRON INH; +SCOP0.333 TP; -SCOP1PAT TP; -SCOPOLAMINE TD; -VANC250C9 IV
--- NOTE | 2022-02-26 00:39 | NUR ---
BIANCA ALS TO BED #8
[2022-02-26 00:40] VITALS: BP 114/83
[2022-02-26] MEDS ORDERED: MEROPENEM 1,000 MG in NACL 0.9% 50 ML IV ONE (00:40)
[2022-02-26] MEDS ORDERED: NACL 0.9% 1,000 ML IV ONE ×2 (00:40→03:30)
[2022-02-26] MEDS ORDERED: MEROPENEM 1,000 MG VIAL IV ONE (00:55)
[2022-02-26] MEDS: VANCOMYCIN 1,000 MG in DEXTROSE 5% 250 ML IV ONE ×2 (01:08→02:00)
--- NOTE | 2022-02-26 01:08 | NUR ---
RT AT BEDSIDE
[2022-02-26 01:20] LABS: BASOPHILS % (AUTO) 0.1 % (0.0-2.0); HEMATOCRIT 47.2 % (36-52); HEMOGLOBIN 15.2 g/dL (12.0-18.0); LYMPHOCYTES # (AUTO) 0.9 K/uL (2.0-11.5); MEAN CORPUSCULAR HEMOGLOBIN 24 pg (27-31); MEAN CORPUSCULAR HGB CONC 32 g/dL (33-37); MEAN CORPUSCULAR VOLUME 73.4 fL (80-94); MONOCYTES # (AUTO) 0.4 K/uL (0.8-1.0); MONOCYTES % (AUTO) 3.6 % (1.7-9.3); NEUTROPHILS # (AUTO) 11.2 K/uL (1.8-7.7); NEUTROPHILS % (AUTO) 89.3 % (42.2-75.2); PLATELET COUNT (AUTO) 356 K/uL (140-450); RED BLOOD CELL COUNT(AUTO) 6.43 MIL/uL (4.20-6.10); RED CELL DISTRIBUTION WIDTH 14.2 % (11.6-13.7); WHITE BLOOD COUNT (AUTO) 12.5 K/uL (4.8-10.8)
[2022-02-26 01:37] LABS: ALBUMIN 3.8 g/dL (3.4-5.0); ANION GAP 17.7 (8-16); CARBON DIOXIDE 25.7 mmol/L (21-32); CREATININE 1.6 mg/dL (0.6-1.3); POTASSIUM 4.4 mmol/L (3.5-5.1)
[2022-02-26] MEDS ORDERED: VANCOMYCIN 1,000 MG VIAL ONE (01:51)
[2022-02-26 02:00] LABS: PROTHROMBIN TIME 11.2 secs (10.8-13.4)
--- NOTE | 2022-02-26 03:32 | NUR ---
PENDING ADMISSION ORDERS. PT TACHYCARDIAC AT 133. HOB ELEVATED ON BEDSIDE SENIOR EDITOR. STRAIGHT CATH IN PLACE, PENDING URINE SAMPLE
--- NOTE | 2022-02-26 04:36 | NUR ---
COVID SWAB COLLECTED AND SENT TO LAB
[2022-02-26 05:05] LABS: BILIRUBIN,URINE NEGATIVE (NEGATIVE); BLOOD, URINE TRACE-I (NEGATIVE); COLOR,URINE YELLOW (YELLOW); LEUKOCYTE ESTERASE ,URINE NEGATIVE (NEGATIVE); NITRITE, URINE POSITIVE (NEGATIVE); UGLUCOSE NEGATIVE (NEGATIVE)
[2022-02-26] MEDS ORDERED: ONDANSETRON 4 MG/2 ML VIAL ONE (05:14)
[2022-02-26] MEDS ORDERED: ONDANSETRON 4 MG/2 ML VIAL IVP ONE (05:20)
[2022-02-26 05:23] LABS: APPEARANCE,URINE SLIGHTLY HAZY (CLEAR)
[2022-02-26] MEDS ORDERED: LEVOFLOXACIN 750 MG/D5W PREMIX 150 ML IV ONE (05:25)
[2022-02-26] MEDS: NACL 0.9% 1,000 ML IV SCH ×3 (05:38→17:20)
[2022-02-26] MEDS ORDERED: NITR2OIN30 TD (06:02)
[2022-02-26] MEDS ORDERED: BISA-213 RC (06:05)
[2022-02-26] MEDS ORDERED: MAGN400S60 PO (06:05)
[2022-02-26] MEDS ORDERED: ONDA-188 PO (06:06)
[2022-02-26] MEDS ORDERED: ASCO500T95 GT (06:07)
[2022-02-26] MEDS ORDERED: MELA3TER GT (06:09)
--- NOTE | 2022-02-26 06:10 | NUR ---
PT MED RECONCILE MED LIST DONE
[2022-02-26] MEDS ORDERED: LEVOFLOXACIN 750 MG/D5W PREMIX 150 ML IV SCH (07:00)
--- NOTE | 2022-02-26 07:25 | NUR ---
REPORT RECEIVED FROM OSMIN FORRESTER. ASSUMED CARE AT THIS TIME
--- NOTE | 2022-02-26 07:30 | NUR ---
pt awake and at rest laying supine position. on bus monitor. bed at lowest position, bed rails upx2
--- NOTE | 2022-02-26 08:17 | NUR ---
Patient will be admitted to care of MD MARINELLI. Admited to TELE. Will go to room 123B. Belongings list completed. Report to MIMA FORRESTER.
[2022-02-26 08:40] VITALS: BP 113/68
--- NOTE | 2022-02-26 08:45 | NUR ---
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 PARSONS 16 PRESENT. PIV ATR. WRIST 20G. NS INFUSING AT 150ML/HR. WILL CONTINUE TO MONITOR
--- NOTE | 2022-02-26 09:22 | NUR ---
PATIENT HAS BEEN SCREENED AND CATEGORIZED HIGH NUTRITION RISK. PATIENT WILL BE SEEN WITHIN 1-2 DAYS OF ADMISSION. 02/26/22-02/28/[address]
[2022-02-26 12:00] VITALS: BP 116/70
[2022-02-26 16:00] VITALS: BP 110/74
[2022-02-26] MEDS ORDERED: LORazepam 2 MG/ML VIAL IVP PRN (16:40)
--- NOTE | 2022-02-26 16:49 | NUR ---
02/26/2022 RD INITIAL ASSESSMENT COMPLETED. PLEASE REFER TO NUTRITION ASSESSMENT UNDER CARE ACTIVITY FOR ESTIMATED NUTRITIONAL NEEDS. 1.WHEN/IF MEDICALLY APPROPRIATE TO INITIATE TF, RECOMMEND VITAL AF 1.2 KATINA WITH A GOAL RATE OF 65 ML/HR. -FWF 250 ML Q8H OR PER MD. -START AT 20ML AND INCREASE BY 20 ML Q4H PT TOLERATES UNTIL GOAL RATE IS REACHED. THIS WILL PROVIDE 1872 KCAL, 117 GRAMS OF PROTEIN, AND 1560 ML VOLUME (1265 ML FREE WATER), MEETING 92% OF ESTIMATED KCAL AND 100% OF PROTEIN NEEDS; ADEQUATE. 2.MONITOR GI SYMPTOMS. 3.RD TO FOLLOW-UP IN 2-3 DAYS PATIENT IS HIGH RISK. JESSICA GONZALEZ RD
--- NOTE | 2022-02-26 19:49 | NUR ---
ENDORSE PATIENT TO PM SHIFT NURSE IN STABLE CONDITION WITH SISTER AT BEDSIDE, PIV INFUSING VIA L.WRIST SITE. R. WRIST IV SITE SALINE. G-TUBE PRESENT, PARSONS 16 FR DRAINING. TRACH CONNECTING TO 8 LITER HIGH FLOW.
[2022-02-26 20:00] VITALS: BP 141/78
[2022-02-27] VITALS: BP 141/81
[2022-02-27] MEDS: NACL 0.9% 1,000 ML IV SCH ×5 (01:28→23:57)
[2022-02-27] MEDS ORDERED: ONDANSETRON 4 MG/2 ML VIAL IVP PRN (01:45)
--- NOTE | 2022-02-27 01:45 | NUR ---
PATIENT VOMITING DARK GREEN LIQUID AND DARK GREEN LIQUID LEAKING FROM GT SITE. DR. JARA CALLED AND NOTIFIED. ORDERS GIVEN FOR ZOFRAN. Shelbi MYERS RN.
--- NOTE | 2022-02-27 01:54 | NUR ---
RT CALLED TO EVALUATE FOR POSSIBLE ASPIRATION. RT STATES THE PATIENT SOUNDS CONGESTED. DR. JARA CALLED TO BE NOTIFIED. NO RESPONSE. CHARGE NURSE NOTIFIED. WILL CONTINUE TO MONITOR FOR SAFETY. Shelbi MYERS RN.
[2022-02-27 04:00] VITALS: BP 132/77
--- NOTE | 2022-02-27 04:11 | NUR ---
UNABLE TO GET IN CONTACT WITH DR. JARA. DR. RUCKER CALLED AND NOTIFIED PATIENT VOMITING DARK GREEN LIQUID AND DARK GREEN LIQUID LEAKING FROM GT SITE. ORDERS GIVEN FOR GI CONSULT WITH DR. MOE ORDERED AND CHEST X RAY TO R/O ASPIRATION. ABHI SCHWAB CONTACTED AND NOTIFIED OF CONSULT. Shelbi MYERS RN.
--- NOTE | 2022-02-27 05:39 | NUR ---
O2 SAT RE CHECKED - 88 % - REFERRED TO RT FOR FURTHER ASSESSMENT . PER RT HE WILL COME TO SEE THE PT . RPT. CXR RESULT PENDING
[2022-02-27 05:45] LABS: BASOPHILS % (AUTO) 0.2 % (0.0-2.0); EOSINOPHILS % (AUTO) 0.5 % (0.0-4.0); HEMATOCRIT 42.5 % (36-52); HEMOGLOBIN 13.8 g/dL (12.0-18.0); LYMPHOCYTES # (AUTO) 1.3 K/uL (2.0-11.5); LYMPHOCYTES % (AUTO) 17.2 % (20.5-51.1); MEAN CORPUSCULAR HEMOGLOBIN 24 pg (27-31); MEAN CORPUSCULAR HGB CONC 32 g/dL (33-37); MEAN CORPUSCULAR VOLUME 72.8 fL (80-94); MONOCYTES # (AUTO) 0.3 K/uL (0.8-1.0); MONOCYTES % (AUTO) 4.4 % (1.7-9.3); NEUTROPHILS # (AUTO) 5.9 K/uL (1.8-7.7); NEUTROPHILS % (AUTO) 77.7 % (42.2-75.2); PLATELET COUNT (AUTO) 265 K/uL (140-450); RED BLOOD CELL COUNT(AUTO) 5.84 MIL/uL (4.20-6.10); RED CELL DISTRIBUTION WIDTH 14.3 % (11.6-13.7); WHITE BLOOD COUNT (AUTO) 7.5 K/uL (4.8-10.8)
[2022-02-27] MEDS ORDERED: PIPERACILLIN/TAZOBACTAM 3.375 GM VIAL IV ONE (05:46)
[2022-02-27] MEDS: PIPERACILLIN/TAZOBACTAM 3.375 GM in DEXTROSE 5% 50 ML IV SCH ×3 (05:53→17:19)
--- NOTE | 2022-02-27 05:55 | NUR ---
O2 SAT 90% - CONT. FOR CLOSELY WATCH
[2022-02-27 06:14] LABS: ALBUMIN 2.5 g/dL (3.4-5.0); ANION GAP 17.3 (8-16); CARBON DIOXIDE 23.7 mmol/L (21-32); CREATININE 1.3 mg/dL (0.6-1.3); TOTAL BILIRUBIN 1.4 mg/dL (0.0-1.0)
[2022-02-27 08:00] VITALS: BP 125/62
[2022-02-27] MEDS: PANTOPRAZOLE 40 MG INJ VIAL IVP SCH (08:47)
[2022-02-27] MEDS: ENOXAPARIN 40 MG/0.4 ML SYR SUBQ SCH (08:57)
[2022-02-27] MEDS ORDERED: LEVOFLOXACIN 750 MG/D5W PREMIX 150 ML IV SCH (09:00)
[2022-02-27 12:00] VITALS: BP 110/69
--- NOTE | 2022-02-27 14:53 | NUR ---
DC PLANNING PT TRAYC TO VENT DEPENDENT, THEREFORE TIA OUTREACHED TO [facility] TO GATHER COLLATERAL INFORMATION. SPOKE WITH AGUSTINA [facility] TIA, AGUSTINA REPORTS PT IS IN SUBACUTE CARE, ADMISSION DATE 08/23/20.PER AGUSTINA, PT IS NONVERBAL AND UNABLE TO MAKE NEEDS KNOWN . PT IS PRIMARILY BEDBOUND AND IS TOTAL CARE AT FACILITY. PT FOLLOWED BY DR. DIAZ AT FACILITY. AGUSTINA GODDARD PT IS REGIONAL GL[place]PINE CONNECTED. PT IS REPORTED TO HAVE ACTIVE FAMILY INVOLVEMENT. DC PLAN IS FOR PT TO RETURN TO [facility], ONCE MEDICALLY STABLE. Addendum: 02/27/22 at 1454 by Carlos Alberto CRANDALL Amended: Links added. Addendum: 03/03/22 at 1018 by Carlos Alberto CRANDALL DC ORDER RECEIVED, PACKET FAXED TO [facility] Addendum: 03/03/22 at 1144 by Carlos Alberto Davies SS SPOKE WITH LC FROM [facility] WHO REPORTS PT ACCEPTED INTO ROOM 6A, DR JOE ALBERT, CALL REPORT NUMBER [phone]. CALLED [facility] SPOKE WITH JAVIER, TRANSPORT SET FOR 1999 DUE TO STAFFING ENDORSED TO PT NURSE. PCS FORM SENT TO [facility]
[2022-02-27 16:00] VITALS: BP 129/77
[2022-02-27] MEDS: METOCLOPRAMIDE 10 MG/2 ML INJ VIAL IVP PRN ×2 (16:03→21:19)
--- NOTE | 2022-02-27 16:45 | NUR ---
RN CALLED FOR PT DESATING. WENT TO ASSESS PT HIS PULSE OX WAS OFF. PLACR Addendum: 02/27/22 at 1827 by Corrie Loera RT RN CALLED FOR PT DESATING. WENT TO ASSESS PT HIS PULSE OX WAS OFF. PLACED NEW PULSE OX PROBE ON PT HE IS 95% ON 60% TBAR.
--- NOTE | 2022-02-27 19:26 | NUR ---
ENDORSE PATIENT TO PM SHIFT NURSE WITH STABLE CONDITION, PATIENT STILL NPO WITH TRACH ON HIGH FLOW 8 LITER, FIO2 30. PIV INFUSING NS @150ML/HR VIA L.WRIST. G-TUBE PRESENT AND WAITING TO CLARIFY STATUS FOR USE.
[2022-02-27 20:00] VITALS: BP 107/57
--- NOTE | 2022-02-27 20:00 | NUR ---
PATIENT SLEEPING, NON VERBAL, TRACH TO T-PIECE ON 8L OXYGEN SATING AT 98%. NO S/S OF RESPIRATORY DISTRESS. BREATHING NORMAL WITH SYMMETRICAL RISE AND FALL OF THE CHEST. IVF NS INFUSING AT 150 MLS/HR. ALL SAFETY MEASURES ARE IN PLACE. BED WHEEL LOCKED. FLACC 0. PARSONS CATHETER IN PLACE. WILL CONTINUE TO MONITOR.
--- NOTE | 2022-02-27 21:19 | NUR ---
PATIENT WITH GREENISH OUTPUT IN THE TRACH TUBE. SUCTIONED PATIENT. REGLAN ADMINISTERED PER MD ORDER.
[2022-02-28] VITALS: BP 98/57
[2022-02-28] MEDS: PIPERACILLIN/TAZOBACTAM 3.375 GM in DEXTROSE 5% 50 ML IV SCH ×4 (00:01→18:13)
[2022-02-28] MEDS: NACL 0.9% 1,000 ML IV SCH ×2 (02:40→09:24)
[2022-02-28 04:00] VITALS: BP 102/62
--- NOTE | 2022-02-28 04:10 | NUR ---
PATIENT HAD BM, CLEANED, CHANGED AND REPOSITIONED.
--- NOTE | 2022-02-28 07:32 | NUR ---
RECEIVED REPORT FROM NIGHTSAKFT NURSE PAIGE FOR CONTINUITY OF CARE. PT IN STABLE CONDITION AND CURRENTLY ASLEEP. PT IS APHASIC AND DOES NOT TRACK WITH EYES. PT IS TRACH TO HIGH FLOW ON 60%FIO2 ON 12L. PT INCONTINENT OF THE BOWEL AND BLADDER, WITH PARSONS TO GRAVITY. NIGHTSHIFT REPORTED MULTIPLE BM'S LAST NIGHT. PT SKIN IS INTACT, IS BEDBOUND WITH CONTRACTURES IN ALL EXTREMITIES. G-TUBE IN PLACE, NO RESIDUAL NOTED. NO SIGNS OF PAIN OR DISTRESS NOTED AT THIS TIME.
--- NOTE | 2022-02-28 07:32 | NUR ---
ENDORSED PATIENT TO DAY SHIFT NURSE FOR CONTINUITY OF CARE.
--- NOTE | 2022-02-28 07:40 | NUR ---
PT WAS ASLEEP. SAT 99%, HR 103, RR 35 BUT SEEMED TO BE RESTING COMFORTABLY, NO DISTRESS NOTED. TRACHED WITH A PORTEX 7. SUCTIONED - MODERATE AMOUNT OF THICK BLOOD-TINGED SPUTUM. HE IS ON 60% COOL AEROSOL.
[2022-02-28 08:00] VITALS: BP 109/58
--- NOTE | 2022-02-28 08:15 | NUR ---
PT VISUALLY ASSESSED, SUCTIONED TRACH. SECRETIONS NOTED TO BE WHITE AND YELLOW IN COLOR.
[2022-02-28] MEDS: PANTOPRAZOLE 40 MG INJ VIAL IVP SCH (09:13)
[2022-02-28] MEDS: ENOXAPARIN 40 MG/0.4 ML SYR SUBQ SCH (09:15)
--- NOTE | 2022-02-28 10:00 | NUR ---
PT VISUALLY ASSESSED, CURRENTLY SLEEPING, NO SIGNS OF PAIN OR DISTRESS NOTED AT THIS TIME.
[2022-02-28 12:00] VITALS: BP 111/55
--- NOTE | 2022-02-28 12:00 | NUR ---
PT VISUALLY ASSESSED, CURRENTLY SLEEPING, NO SIGNS OF PAIN OR DISTRESS NOTED AT THIS TIME.
[2022-02-28] MEDS: DEXT 5% / NACL 0.45% 1,000 ML IV SCH ×2 (12:53→22:40)
--- NOTE | 2022-02-28 14:00 | NUR ---
PT VISUALLY ASSESSED, CURRENTLY SLEEPING, NO SIGNS OF PAIN OR DISTRESS NOTED AT THIS TIME. ELIZABETH ERICKSON PERFORMING BED BATH AND LINEN CHANGE.
[2022-02-28 16:00] VITALS: BP 117/64
--- NOTE | 2022-02-28 16:00 | NUR ---
PT VISUALLY ASSESSED, CURRENTLY SLEEPING, NO SIGNS OF PAIN OR DISTRESS NOTED AT THIS TIME. FAMILY AT THE BEDSIDE.
[2022-02-28] MEDS ORDERED: MELATONIN 3 MG TAB PO PRN (16:50)
[2022-02-28] MEDS ORDERED: MAGNESIUM HYDROXIDE 2400 MG/30 ML UDC PO PRN (16:50)
[2022-02-28] MEDS ORDERED: MORPHINE SULFATE 10 MG PO PRN (16:50)
[2022-02-28] MEDS ORDERED: SODIUM PHOSPHATE 118 ML ENEM RC PRN (16:55)
[2022-02-28] MEDS ORDERED: SODIUM PHOSPHATE 118 ML ENEM RC SCH (16:55)
[2022-02-28] MEDS ORDERED: LACTULOSE 20 GM/30 ML UDC PO SCH (16:55)
--- NOTE | 2022-02-28 17:00 | NUR ---
DR. MOE IN TO SEE PT. G-TUBE FEEDING JEVITY AT 20ML/HR WITH 50CC H2O FLUSHES Q6H GIVEN.
--- NOTE | 2022-02-28 17:30 | NUR ---
PER DIETARY, [facility] FORMULA IS ON BACKORDER, WAS TOLD THEY WOULD CALL BACK WITH RECOMMENDATION.
[2022-02-28] MEDS: ERYTHROMYCIN 200 MG in NACL 0.9% 100 ML IV SCH (18:00)
[2022-02-28] MEDS: PROPRANOLOL 20 MG TAB GT SCH (18:00)
--- NOTE | 2022-02-28 18:00 | NUR ---
DIETARY RECOMMENDED VITAL AF FOR TUBE FEEDING WITH PROSOURCE BID. ORDER UPDATED.
[2022-02-28 19:20] LABS: BASOPHILS % (AUTO) 0.2 % (0.0-2.0); EOSINOPHILS # (AUTO) 0.4 K/uL (0-0.4); HEMATOCRIT 31.9 % (36-52); HEMOGLOBIN 10.2 g/dL (12.0-18.0); LYMPHOCYTES # (AUTO) 2.3 K/uL (2.0-11.5); LYMPHOCYTES % (AUTO) 18.5 % (20.5-51.1); MEAN CORPUSCULAR HEMOGLOBIN 23 pg (27-31); MEAN CORPUSCULAR HGB CONC 32 g/dL (33-37); MEAN CORPUSCULAR VOLUME 72.4 fL (80-94); MONOCYTES # (AUTO) 0.9 K/uL (0.8-1.0); MONOCYTES % (AUTO) 7.2 % (1.7-9.3); NEUTROPHILS # (AUTO) 8.9 K/uL (1.8-7.7); NEUTROPHILS % (AUTO) 71.1 % (42.2-75.2); PLATELET COUNT (AUTO) 211 K/uL (140-450); RED CELL DISTRIBUTION WIDTH 14.2 % (11.6-13.7); WHITE BLOOD COUNT (AUTO) 12.5 K/uL (4.8-10.8)
[2022-02-28 19:32] LABS: ANION GAP 11.7 (8-16); CARBON DIOXIDE 26.2 mmol/L (21-32)
[2022-02-28 19:43] LABS: POTASSIUM 2.9 mmol/L (3.5-5.1)
--- NOTE | 2022-02-28 19:45 | NUR ---
ENDORSED PT TO NIGHTSHIFT NURSE JOSELUIS FOR CONTINUITY OF CARE. PT IN STABLE CONDITION.
[2022-02-28 20:00] VITALS: BP 123/66
--- NOTE | 2022-02-28 20:28 | NUR ---
PATIENT SLEEPING , BREATHING REGULAR WITH SYMMETRICAL RISE AND FALL OF THE CHEST. TRACH TO T-PIECE ON 40L O2. SAFETY MEASURES ARE IN PLACE. PARSONS CATHETER DRAINING DARK TAYLOR COLORED URINE. CALL LIGHT WITHIN REACH.
[2022-02-28] MEDS ORDERED: NON-FORMULARY ITEM (Chlorhexidine Gluconate (Periogard 480 Ml) 15 ML) PO SCH (21:00)
[2022-02-28] MEDS ORDERED: DOCUSATE SODIUM 100 MG GELCAP PO SCH (21:00)
[2022-02-28] MEDS: KCL 20 MEQ/WATER INJ PREMIX 100 ML IV SCH (21:46)
--- NOTE | 2022-02-28 21:46 | NUR ---
K RIDER 20 MEQ ADMINISTERED ORDERED.
[2022-02-28] MEDS: levETIRAcetam 100 MG/ML ORASYR GT SCH (21:48)
[2022-03-01] VITALS: BP 102/64
[2022-03-01] MEDS: PIPERACILLIN/TAZOBACTAM 3.375 GM in DEXTROSE 5% 50 ML IV SCH ×4 (00:23→18:01)
[2022-03-01] MEDS: PROPRANOLOL 20 MG TAB GT SCH ×4 (00:28→18:01)
[2022-03-01] MEDS: ERYTHROMYCIN 200 MG in NACL 0.9% 100 ML IV SCH ×3 (00:58→13:06)
[2022-03-01] MEDS: KCL 20 MEQ/WATER INJ PREMIX 100 ML IV SCH (02:28)
[2022-03-01 04:00] VITALS: BP 100/66
--- NOTE | 2022-03-01 05:46 | NUR ---
SCHEDULED MEDICATION ADMINISTERED ORDERED.
[2022-03-01 06:03] LABS: BASOPHILS % (AUTO) 0.3 % (0.0-2.0); EOSINOPHILS # (AUTO) 0.4 K/uL (0-0.4); EOSINOPHILS % (AUTO) 3.4 % (0.0-4.0); HEMATOCRIT 30.3 % (36-52); HEMOGLOBIN 9.7 g/dL (12.0-18.0); LYMPHOCYTES % (AUTO) 15.5 % (20.5-51.1); MEAN CORPUSCULAR HEMOGLOBIN 23 pg (27-31); MEAN CORPUSCULAR HGB CONC 32 g/dL (33-37); MEAN CORPUSCULAR VOLUME 72.7 fL (80-94); MONOCYTES # (AUTO) 0.9 K/uL (0.8-1.0); MONOCYTES % (AUTO) 6.9 % (1.7-9.3); NEUTROPHILS # (AUTO) 9.5 K/uL (1.8-7.7); NEUTROPHILS % (AUTO) 73.9 % (42.2-75.2); PLATELET COUNT (AUTO) 215 K/uL (140-450); RED BLOOD CELL COUNT(AUTO) 4.17 MIL/uL (4.20-6.10); RED CELL DISTRIBUTION WIDTH 14.2 % (11.6-13.7); WHITE BLOOD COUNT (AUTO) 12.8 K/uL (4.8-10.8)
[2022-03-01 06:35] LABS: MAGNESIUM 1.6 mg/dL (1.8-2.4); PHOSPHORUS 1.7 mg/dL (2.5-4.9)
[2022-03-01 06:36] LABS: ANION GAP 0.7 (8-16); CARBON DIOXIDE 24.8 mmol/L (21-32); POTASSIUM 3.5 mmol/L (3.5-5.1)
--- NOTE | 2022-03-01 07:30 | NUR ---
RECEIVED PT CARE AND REPORT FROM PAIGE OAKES. PT IS RESTING IN BED SEMI FOWLERS WITH OU CLOSED. NO VISIBLE S/S OF DISTRESS, DISCOMFORT, PAIN OR SOB. CALL LIGHT IS WITHIN REACH, ALL NEEDS MET AT THIS TIME. PT IS APHASIC.
--- NOTE | 2022-03-01 07:35 | NUR ---
ENDORSED PATIENT TO MORNING SHIFT NURSE FOR CONTINUITY OF CARE.
[2022-03-01 08:00] VITALS: BP 113/62
--- NOTE | 2022-03-01 08:00 | NUR ---
PT CURRENTLY ON COOL AEROSOL, 60%. SATURATION 98%. EQUAL CHEST RISE, MILD COARSE BREATH SOUNDS. THICK LIGHT BROWN SPUTUM. PT RESTING. WILL CONTINUE TO MONITOR.
[2022-03-01] MEDS ORDERED: DOCUSATE 100 MG/10 ML UDC GT SCH (09:00)
[2022-03-01] MEDS ORDERED: MULTIVITAMIN/MINERALS 15 ML UDBTL GT SCH (09:00)
[2022-03-01] MEDS ORDERED: LACTULOSE 20 GM/30 ML UDC PO SCH (09:00)
[2022-03-01] MEDS: PANTOPRAZOLE 40 MG INJ VIAL IVP SCH (09:36)
[2022-03-01] MEDS: ASCORBIC ACID 500 MG/5 ML ORASYR GT SCH (09:36)
[2022-03-01] MEDS: MULTIVITAMIN/MINERALS 1 TAB GT SCH (09:37)
[2022-03-01] MEDS: levETIRAcetam 100 MG/ML ORASYR GT SCH ×2 (09:37→21:44)
[2022-03-01] MEDS: ENOXAPARIN 40 MG/0.4 ML SYR SUBQ SCH (09:41)
[2022-03-01] MEDS: bisacodyL 10 MG SUPP RC SCH (09:43)
[2022-03-01 12:00] VITALS: BP 148/56
--- NOTE | 2022-03-01 12:37 | NUR ---
PT. WITH LOW JAMESON SCALE AT MODERATE TO HIGH RISK, CONTINUE TO FOLLOW PRESSURE INJURY PREVENTION INTERVENTIONS. -POSITIONING: TURN AND REPOSITION PATIENT Q 2H OR SOONER USE PILLOWS TO KEEP BONY PROMINENCES FROM DIRECT CONTACT WITH SURFACES USE REPOSITIONING WEDGES TO PROVIDE 30-DEGREE ANGLE FOR SIDE LYING POSITIONS OFFLOADING OR FOAM DRESSING TO ALL TUBING TO PREVENT MEDICAL DEVICES RELATED PRESSURE INJURY -RE-EVALUATING AND MANAGING INCONTINENCE MONITOR SKIN CONDITION DURING POSITION CHANGE DO NOT MASSAGE REDNESS, BONY PROMINENCES FREQUENT GRANT-CARE AND PROVIDE BARRIER CREAMS PRN IF SOILING MOISTURE CONTROL BY OFFER BED SWAIN/URINAL /ABSORBENT PAD TO WICK AND HOLD MOISTURE KEEP SKIN DRY AND PROTECT FROM FRICTION -MANAGE FRICTION/SHEAR/MOBILITY KEEP HOB AT THE LOWEST LEVEL OF ELEVATION NO MORE THAN 30 DEGREE UNLESS OTHERWISE CONTRAINDICATED USE LIFT SHEET OR TRANSFER DEVICE TO MOVE PATIENT AND PREVENT LATERAL SHEER. PROTECT HEELS, ELBOWS BONY PROMINENCES WITH SKIN BERRIES OR FOAM DRESSING IF EXPOSED TO FRICTION OFFLOAD BILATERAL HEELS BY PLACING PILLOWS UNDER CALVES AT ALL TIMES, UNLESS OTHERWISE CONTRAINDICATED -PRESSURE REDISTRIBUTION SURFACE THERAPY ANDRES ISOFLEX MATTRESS -NUTRITION: PLEASE FOLLOW RD RECOMMENDATIONS AND OFFER NUTRITION SUPPLEMENTS IF ORDERED. PLEASE CONTACT WOUND CARE NURSE FOR ANY QUESTION AND CHANGE OF WOUND CONDITION.
--- NOTE | 2022-03-01 12:44 | NUR ---
03/01/22 RD FOLLOW UP COMPLETED PLEASE REFER TO NUTRITION ASSESSMENT UNDER CARE ACTIVITY FOR ESTIMATED NUTRITIONAL NEEDS. 1. WHEN/IF MEDICALLY APPROPRIATE, RECOMMEND INCREASING VITAL AF 1.2 KATINA TO 65ML/HR -FWF: 100ML Q6H OR PER MD -INCREASE BY 10ML Q4H PT TOLERATES UNTIL GOAL RATE IS REACHED. THIS WILL PROVIDE 1872 KCAL AND 117 GRAMS OF PROTEIN, MEETING 92% OF ESTIMATED KCAL AND 100% OF PROTEIN NEEDS; ADEQUATE 2. MONITOR GI SYMPTOMS. -RECOMMEND BANATROL BID IF PT CONTINUES HAVING DIARRHEA 3. RD TO FOLLOW-UP IN 3-5 DAYS PATIENT IS MODERATE RISK. BIB SHARMA RD
[2022-03-01] MEDS: METOCLOPRAMIDE 10 MG/2 ML INJ VIAL IVP PRN (13:06)
[2022-03-01] MEDS: MAGNESIUM OXIDE 400 MG TAB PO SCH (13:07)
[2022-03-01] MEDS ORDERED: POTASSIUM CHLORIDE 20% 40 MEQ/15 ML UDC GT SCH (13:30)
--- NOTE | 2022-03-01 14:00 | NUR ---
G-TUBE FEEDING RATE INCREASED FROM 20ML/HR TO 40ML/HR PER ORDER.
--- NOTE | 2022-03-01 15:00 | NUR ---
PT TOLERATING FEEDING RATE CHANGE WELL. NO S/S OF NAUSEA OR VOMITING. RESIDUAL <20ML.
[2022-03-01 16:00] VITALS: BP 131/82
--- NOTE | 2022-03-01 17:30 | NUR ---
PT PLACED ON CONTACT PRECAUTIONS OR ESBL OF SPUTUM. CHARGE NURSE NAVIN NOTIFIED.
[2022-03-01] MEDS ORDERED: ERYTHROMYCIN 100 MG in NACL 0.9% 100 ML IV SCH (18:00)
[2022-03-01] MEDS: NACL 0.9% IV SCH (18:02)
[2022-03-01] MEDS: ERYTHROMYCIN IV SCH (18:02)
--- NOTE | 2022-03-01 18:37 | NUR ---
PT IS RESTING IN BED WITH OU CLOSED, NO VISIBLE S/S OF DISTRESS, DISCOMFORT, PAIN OR SOB. CALL LIGHT IS WITHIN REACH, ALL NEEDS MET AT THIS TIME. WILL ENDORSE TO NOC SHIVA RN.
[2022-03-01 20:00] VITALS: BP 128/78
[2022-03-01] MEDS: MEROPENEM 500 MG in NACL 0.9% 100 ML IV SCH (21:44)
--- NOTE | 2022-03-01 21:44 | NUR ---
DUE SCHEDULED MEDICATIONS GIVEN. PATIENT SLEEPING, TRACH TO T-PIECE ON HIGH FLOW OXYGEN. RESPIRATION EVEN UNLABORED. NO SOB NOTED.
--- NOTE | 2022-03-01 21:44 | NUR ---
DUE MEDICATIONS GIVEN. PATIENT IS APHASIC, TRACH TO T-PIECE ON HIGH FLOW OXYGEN. NO SOB NOTED. SAFETY MEASURES ARE IN PLACE.
[2022-03-02] VITALS: BP 120/70
[2022-03-02] MEDS: PROPRANOLOL 20 MG TAB GT SCH ×4 (00:40→18:43)
[2022-03-02] MEDS: ERYTHROMYCIN IV SCH ×3 (00:41→12:58)
[2022-03-02] MEDS: NACL 0.9% IV SCH ×3 (00:41→12:58)
--- NOTE | 2022-03-02 02:24 | NUR ---
SUCTIONED SECRETIONS NEEDED.
[2022-03-02 04:00] VITALS: BP 124/68
--- NOTE | 2022-03-02 04:15 | NUR ---
PATIENT CLEANED, CHANGED AND REPOSITIONED.
[2022-03-02] MEDS: MEROPENEM 500 MG in NACL 0.9% 100 ML IV SCH ×3 (05:01→21:51)
[2022-03-02 05:51] LABS: BASOPHILS % (AUTO) 0.2 % (0.0-2.0); EOSINOPHILS # (AUTO) 0.3 K/uL (0-0.4); EOSINOPHILS % (AUTO) 3.5 % (0.0-4.0); HEMATOCRIT 31.6 % (36-52); HEMOGLOBIN 10.3 g/dL (12.0-18.0); LYMPHOCYTES # (AUTO) 2.1 K/uL (2.0-11.5); LYMPHOCYTES % (AUTO) 21.5 % (20.5-51.1); MEAN CORPUSCULAR HEMOGLOBIN 24 pg (27-31); MEAN CORPUSCULAR HGB CONC 33 g/dL (33-37); MEAN CORPUSCULAR VOLUME 72.4 fL (80-94); MONOCYTES # (AUTO) 0.9 K/uL (0.8-1.0); MONOCYTES % (AUTO) 9.5 % (1.7-9.3); NEUTROPHILS # (AUTO) 6.5 K/uL (1.8-7.7); NEUTROPHILS % (AUTO) 65.3 % (42.2-75.2); PLATELET COUNT (AUTO) 244 K/uL (140-450); RED BLOOD CELL COUNT(AUTO) 4.37 MIL/uL (4.20-6.10); RED CELL DISTRIBUTION WIDTH 14.2 % (11.6-13.7)
[2022-03-02 06:42] LABS: MAGNESIUM 1.5 mg/dL (1.8-2.4); PHOSPHORUS 2.1 mg/dL (2.5-4.9)
[2022-03-02 06:45] LABS: ANION GAP 9.1 (8-16); CARBON DIOXIDE 26.4 mmol/L (21-32); CREATININE 0.9 mg/dL (0.6-1.3); POTASSIUM 3.5 mmol/L (3.5-5.1)
--- NOTE | 2022-03-02 07:29 | NUR ---
ENDORSED PATIENT TO MORNING SHIFT NURSE FOR CONTINUITY OF CARE,
[2022-03-02 08:00] VITALS: BP 121/64
[2022-03-02] MEDS: ASCORBIC ACID 500 MG/5 ML ORASYR GT SCH (09:46)
[2022-03-02] MEDS: levETIRAcetam 100 MG/ML ORASYR GT SCH ×2 (09:46→21:51)
[2022-03-02] MEDS: MULTIVITAMIN/MINERALS 1 TAB GT SCH (09:46)
[2022-03-02] MEDS: bisacodyL 10 MG SUPP RC SCH (09:47)
[2022-03-02] MEDS: LACTULOSE 20 GM/30 ML UDC PO SCH (09:47)
[2022-03-02] MEDS: MAGNESIUM OXIDE 400 MG TAB PO SCH (09:47)
[2022-03-02] MEDS: ENOXAPARIN 40 MG/0.4 ML SYR SUBQ SCH (09:52)
[2022-03-02 12:00] VITALS: BP 118/59
[2022-03-02 16:00] VITALS: BP 135/69
[2022-03-02] MEDS: ERYTHROMYCIN 100 MG in NACL 0.9% 100 ML IV SCH (18:43)
[2022-03-02 20:00] VITALS: BP 122/86
--- NOTE | 2022-03-02 20:09 | NUR ---
LAB CHEM REVIEWED : SERUM MAG . TRENDING DOWN 1.6 TO 1.5 - [facility] THERE IS MAG OXIDE 400MG / GT OD - RELAYED TO DR. LYNNE - DR. AGUIRRE RESPONDED THRU TEXT ICON " THUMB UP" - NO FURTHER ORDERS .
--- NOTE | 2022-03-02 20:24 | NUR ---
RT AT BEDSIDE . WILL CONT. TO MONITOR .
--- NOTE | 2022-03-02 22:46 | NUR ---
ROUNDS , O2 SAT 100 % , HR 65 , NO S/SX OF ACUTE DISTRESS , WILL CONT. TO MONITOR .
[2022-03-03] VITALS (7 sets, daily range): BP systolic 100–137; BP diastolic 60–84
[2022-03-03] MEDS: ERYTHROMYCIN 100 MG in NACL 0.9% 100 ML IV SCH ×2 (00:10→06:48)
[2022-03-03] MEDS: PROPRANOLOL 20 MG TAB GT SCH ×4 (01:00→18:00)
--- NOTE | 2022-03-03 01:00 | NUR ---
BP 100/60 , HR 61 - WILL CONT. TO MONITOR
--- NOTE | 2022-03-03 04:00 | NUR ---
ROUNDS , NO S/SX OF ACUTE DISTRESS NOTED
[2022-03-03 05:40] LABS: BASOPHILS % (AUTO) 0.4 % (0.0-2.0); EOSINOPHILS # (AUTO) 0.4 K/uL (0-0.4); EOSINOPHILS % (AUTO) 4.6 % (0.0-4.0); HEMATOCRIT 31.3 % (36-52); HEMOGLOBIN 10.1 g/dL (12.0-18.0); LYMPHOCYTES # (AUTO) 2.6 K/uL (2.0-11.5); LYMPHOCYTES % (AUTO) 30.2 % (20.5-51.1); MEAN CORPUSCULAR HEMOGLOBIN 23 pg (27-31); MEAN CORPUSCULAR HGB CONC 32 g/dL (33-37); MEAN CORPUSCULAR VOLUME 72.3 fL (80-94); MONOCYTES # (AUTO) 1.1 K/uL (0.8-1.0); MONOCYTES % (AUTO) 13.3 % (1.7-9.3); NEUTROPHILS # (AUTO) 4.4 K/uL (1.8-7.7); NEUTROPHILS % (AUTO) 51.5 % (42.2-75.2); PLATELET COUNT (AUTO) 236 K/uL (140-450); RED BLOOD CELL COUNT(AUTO) 4.32 MIL/uL (4.20-6.10); RED CELL DISTRIBUTION WIDTH 14.2 % (11.6-13.7); WHITE BLOOD COUNT (AUTO) 8.6 K/uL (4.8-10.8)
[2022-03-03] MEDS: MEROPENEM 500 MG in NACL 0.9% 100 ML IV SCH ×2 (05:43→13:26)
[2022-03-03 05:55] LABS: MAGNESIUM 1.6 mg/dL (1.8-2.4)
[2022-03-03 06:09] LABS: CARBON DIOXIDE 29.5 mmol/L (21-32); CREATININE 0.8 mg/dL (0.6-1.3); POTASSIUM 3.5 mmol/L (3.5-5.1)
--- NOTE | 2022-03-03 07:03 | NUR ---
ENDORSED FOR CONT. OF CARE
[2022-03-03] MEDS ORDERED: MAG SULF 2000 MG/WATER PREMIX 100 ML IV ONE (08:20)
[2022-03-03] MEDS ORDERED: POTASSIUM CHLORIDE 20% 40 MEQ/15 ML UDC GT ONE (08:20)
[2022-03-03] MEDS ORDERED: SCOPOLAMINE 1.5 MG/72 HR PATCH TD SCH (09:00)
[2022-03-03] MEDS: MULTIVITAMIN/MINERALS 1 TAB GT SCH (09:15)
[2022-03-03] MEDS: ASCORBIC ACID 500 MG/5 ML ORASYR GT SCH (09:15)
[2022-03-03] MEDS: levETIRAcetam 100 MG/ML ORASYR GT SCH (09:15)
[2022-03-03] MEDS: bisacodyL 10 MG SUPP RC SCH (09:16)
[2022-03-03] MEDS: MAGNESIUM OXIDE 400 MG TAB PO SCH (09:16)
[2022-03-03] MEDS: LACTULOSE 20 GM/30 ML UDC PO SCH (09:16)
[2022-03-03] MEDS: ENOXAPARIN 40 MG/0.4 ML SYR SUBQ SCH (09:17)
[2022-03-03] MEDS ORDERED: MERO500P9 IV (09:56)
--- NOTE | 2022-03-03 12:25 | NUR ---
PT WAS SUCTION WITH MEDIUM THICK RM SECRETION NO SOB AT THE MOMENT PT SATURATION IS 100% WILL CONT TO MONITOR
--- NOTE | 2022-03-03 18:04 | NUR ---
PT WAS DISCHARGED IN STABLE CONDITION. PT WILL BE DISCHARGED WITH G-TUBE, IV IN L HAND AND TRACH TO T BAR ON 10L O2. PARSONS AND ID BAND REMOVED. REPORT GIVEN TO FACILITY.
== END 2022-03-03 18:07 | DRG 871 ==
LOC: MED 00:36 → MTU 04:00
PROVIDERS: ADMIT Family Medicine; ATTEND Family Medicine
PROC: 5A1935Z Respiratory Ventilation, Less than 24 Consecutive Hours (ICD-10-PCS; principal; 2022-02-28)
DX: A41.9 Sepsis, unspecified organism (principal); J15.0 Pneumonia due to Klebsiella pneumoniae; N17.0 Acute kidney failure with tubular necrosis; E87.1 Hypo-osmolality and hyponatremia; N39.0 Urinary tract infection, site not specified; E46 Unspecified protein-calorie malnutrition; J96.10 Chronic respiratory failure, unspecified whether with hypoxia or hypercapnia; E87.20 Acidosis, unspecified; R65.20 Severe sepsis without septic shock; Z20.822 Contact with and (suspected) exposure to COVID-19; K21.9 Gastro-esophageal reflux disease without esophagitis; E83.51 Hypocalcemia; I95.9 Hypotension, unspecified; I10 Essential (primary) hypertension; E87.6 Hypokalemia; E83.39 Other disorders of phosphorus metabolism; E83.42 Hypomagnesemia; Z93.0 Tracheostomy status; Z90.5 Acquired absence of kidney; Z87.820 Personal history of traumatic brain injury; Z86.74 Personal history of sudden cardiac arrest; Z68.24 Body mass index [BMI] 24.0-24.9, adult; Z93.1 Gastrostomy status
CPT/HCPCS: 36415; 36600; 71045; 74018; 74250; 80048; 80053; 81001; 82803; 83605; 83735; 84100; 85025; 85610; 85730; 87040; 87070; 87081; 87086; 87205; 93005; 96365; 96366; 96368; 99291; C9113; J1364; J1650; J1956; J2185; J2405; J2543; J2765; J3370; J3475; J3480; J7030; J7060; Q0092

== ENCOUNTER 2023-02-01 19:11 | Inpatient (IN) | payer OTHER, MEDICAID ==
[~2023-02-01] VITALS: Ht 172.7 cm; Wt 81.2 kg
[~2023-02-01 19:11] MED LIST changes: +BISA-213 RC; +MAGN400S60 PO; +MELA3TER GT; +MERO500P9 IV; +NITR2OIN30 TD; +ONDA-188 PO
[2023-02-01 19:15] VITALS: PULSE 139; PULSE 86; O2SAT 96; O2SAT 98
[2023-02-01] MEDS ORDERED: cefTRIAXone 1,000 MG in DEXT 5% MINI-BAG PLUS 50 ML IV ONE (19:15)
[2023-02-01] MEDS ORDERED: NACL 0.9% 2,000 ML IV SCH (19:15)
[2023-02-01 19:26] VITALS: BP 124/76; PULSE 146; RESP 23; TEMP 98.6; O2SAT 88
[2023-02-01] MEDS ORDERED: cefTRIAXone 1,000 MG VIAL ONE (19:28)
[2023-02-01 19:44] LABS: BASOPHILS % (AUTO) 0.2 % (0.0-2.0); EOSINOPHILS % (AUTO) 0.1 % (0.0-4.0); HEMATOCRIT 48.3 % (36-52); HEMOGLOBIN 15.7 g/dL (12.0-18.0); LYMPHOCYTES # (AUTO) 1.8 K/uL (2.0-11.5); MEAN CORPUSCULAR HEMOGLOBIN 23 pg (27-31); MEAN CORPUSCULAR HGB CONC 33 g/dL (33-37); MEAN CORPUSCULAR VOLUME 72.1 fL (80-94); MONOCYTES # (AUTO) 0.5 K/uL (0.8-1.0); MONOCYTES % (AUTO) 3.5 % (1.7-9.3); NEUTROPHILS # (AUTO) 11.4 K/uL (1.8-7.7); NEUTROPHILS % (AUTO) 83.2 % (42.2-75.2); PLATELET COUNT (AUTO) 358 K/uL (140-450); RED BLOOD CELL COUNT(AUTO) 6.69 MIL/uL (4.20-6.10); RED CELL DISTRIBUTION WIDTH 14.2 % (11.6-13.7); WHITE BLOOD COUNT (AUTO) 13.6 K/uL (4.8-10.8)
[2023-02-01 20:02] LABS: ALBUMIN 3.8 g/dL (3.4-5.0); ANION GAP 18.4 (8-16); CALCIUM 9.6 mg/dL (8.5-10.1); CARBON DIOXIDE 25.9 mmol/L (21-32); CREATININE 1.9 mg/dL (0.6-1.3); POTASSIUM 4.3 mmol/L (3.5-5.1); TOTAL PROTEIN, SERUM 10.6 g/dL (6.4-8.2)
[2023-02-01 20:08] LABS: LACTIC ACID 4.1 mmol/L (0.4-2.0)
[2023-02-01 20:14] VITALS: PULSE 136; RESP 20; O2SAT 95; O2SAT 96
[2023-02-01 20:20] LABS: BILIRUBIN,URINE NEGATIVE (NEGATIVE); BLOOD, URINE NEGATIVE (NEGATIVE); COLOR,URINE ORANGE (YELLOW); LEUKOCYTE ESTERASE ,URINE NEGATIVE (NEGATIVE); NITRITE, URINE NEGATIVE (NEGATIVE); PROTEIN,URINE 3+ (NEGATIVE); UGLUCOSE NEGATIVE (NEGATIVE); UROBILINOGEN,URINE 0.2 EU/dL (0.2 - 1)
[2023-02-01 20:21] LABS: FLU A ANTIGEN negative (NEGATIVE); FLU B ANTIGEN NEGATIVE (NEGATIVE)
[2023-02-01 20:34] LABS: APPEARANCE,URINE CLEAR (CLEAR)
[2023-02-01] MEDS ORDERED: ACETAMINOPHEN 650 MG SUPP RC ONE (20:35)
[2023-02-01] MEDS ORDERED: KCL 20 MEQ IN 100 mL PREMIX 200 ML IV PRN (21:30)
[2023-02-01] MEDS ORDERED: ACETAMINOPHEN 325 MG TAB PO PRN (21:30)
[2023-02-01] MEDS ORDERED: MORPHINE SULFATE 2 MG/ML SYR IVP PRN (21:30)
[2023-02-01] MEDS ORDERED: MAG SULF 2000 MG/WATER PREMIX 50 ML IV PRN (21:30)
[2023-02-01 21:50] VITALS: PULSE 119; O2SAT 97
[2023-02-01 22:40] VITALS: PULSE 118; RESP 24; O2SAT 96
[2023-02-01 22:51] VITALS: BP 136/86; PULSE 117; PULSE 118; RESP 24; TEMP 98.5; O2SAT 96
[2023-02-01] MEDS: DEXT 5% /NACL 0.9% 1,000 ML IV SCH (23:15)
[2023-02-02] VITALS (15 sets, daily range): BP systolic 118–124; BP diastolic 75–79; PULSE 89–130; RESP 16–24; TEMP 97.2–98.8; O2SAT 96–99
[2023-02-02] MEDS ORDERED: ALBUTEROL SULFATE/IPRATROPIU 3 ML SOL IH SCH (01:00)
[2023-02-02] MEDS ORDERED: PIPERACILLIN/TAZOBACTAM 2.25 GM VIAL IV ONE (04:04)
[2023-02-02] MEDS: PIPERACILLIN/TAZOBACTAM 2.25 GM in DEXTROSE 5% 50 ML IV SCH ×3 (04:29→20:08)
[2023-02-02 04:42] LABS: BASOPHILS % (AUTO) 0.3 % (0.0-2.0); EOSINOPHILS % (AUTO) 0.3 % (0.0-4.0); HEMATOCRIT 40.2 % (36-52); LYMPHOCYTES # (AUTO) 2.1 K/uL (2.0-11.5); LYMPHOCYTES % (AUTO) 18.4 % (20.5-51.1); MEAN CORPUSCULAR HEMOGLOBIN 23 pg (27-31); MEAN CORPUSCULAR HGB CONC 32 g/dL (33-37); MEAN CORPUSCULAR VOLUME 72.2 fL (80-94); MONOCYTES # (AUTO) 0.7 K/uL (0.8-1.0); MONOCYTES % (AUTO) 5.7 % (1.7-9.3); NEUTROPHILS # (AUTO) 8.7 K/uL (1.8-7.7); NEUTROPHILS % (AUTO) 75.3 % (42.2-75.2); PLATELET COUNT (AUTO) 261 K/uL (140-450); RED BLOOD CELL COUNT(AUTO) 5.56 MIL/uL (4.20-6.10); WHITE BLOOD COUNT (AUTO) 11.6 K/uL (4.8-10.8)
[2023-02-02 05:05] LABS: ALBUMIN 2.8 g/dL (3.4-5.0); ANION GAP 12.3 (8-16); CALCIUM 8.5 mg/dL (8.5-10.1); CARBON DIOXIDE 26.7 mmol/L (21-32); CREATININE 1.1 mg/dL (0.6-1.3); MAGNESIUM 2.3 mg/dL (1.8-2.4); TOTAL BILIRUBIN 0.8 mg/dL (0.0-1.0); TOTAL PROTEIN, SERUM 8.3 g/dL (6.4-8.2)
[2023-02-02] MEDS: DEXT 5% /NACL 0.9% 1,000 ML IV SCH ×2 (10:39→22:30)
[2023-02-02] MEDS ORDERED: ALBUTEROL SULFATE/IPRATROPIU 3 ML SOL IH PRN (14:50)
[2023-02-02 16:37] LABS: BLOOD GAS HCO3 26.3 mmol/L (22-26); BLOOD GAS PCO2 42.6 mmHg (35-45); BLOOD GAS PH 7.408 (7.35-7.45); BLOOD GAS PO2 70.6 mmHg (75-100)
[2023-02-02 16:38] LABS: BLOOD GAS BASE EXCESS 1.4 mmol/L (-2.0-2.0); BLOOD GAS O2 SAT% 93.8 % (92.0-98.5)
[2023-02-02] MEDS: levETIRAcetam 1,000 MG in NACL 0.9% 100 ML IV SCH ×2 (18:25→21:24)
[2023-02-02] MEDS: ALBUTEROL SULFATE/IPRATROPIU 3 ML SOL IH SCH (19:08)
[2023-02-03] VITALS (21 sets, daily range): BP systolic 94–117; BP diastolic 52–72; PULSE 75–110; RESP 16–28; TEMP 97.2–99.1; O2SAT 95–100
[2023-02-03] MEDS: ALBUTEROL SULFATE/IPRATROPIU 3 ML SOL IH SCH ×4 (00:56→18:32)
[2023-02-03] MEDS: PIPERACILLIN/TAZOBACTAM 2.25 GM in DEXTROSE 5% 50 ML IV SCH (04:03)
[2023-02-03] MEDS: DEXT 5% /NACL 0.9% 1,000 ML IV SCH ×2 (04:06→23:30)
[2023-02-03 06:51] LABS: BASOPHILS % (AUTO) 0.2 % (0.0-2.0); EOSINOPHILS # (AUTO) 0.4 K/uL (0-0.4); EOSINOPHILS % (AUTO) 2.7 % (0.0-4.0); HEMATOCRIT 33.8 % (36-52); HEMOGLOBIN 10.9 g/dL (12.0-18.0); MEAN CORPUSCULAR HEMOGLOBIN 23 pg (27-31); MEAN CORPUSCULAR HGB CONC 32 g/dL (33-37); MEAN CORPUSCULAR VOLUME 72.5 fL (80-94); MONOCYTES # (AUTO) 0.9 K/uL (0.8-1.0); NEUTROPHILS # (AUTO) 11.9 K/uL (1.8-7.7); NEUTROPHILS % (AUTO) 78.1 % (42.2-75.2); PLATELET COUNT (AUTO) 213 K/uL (140-450); RED BLOOD CELL COUNT(AUTO) 4.67 MIL/uL (4.20-6.10); RED CELL DISTRIBUTION WIDTH 14.2 % (11.6-13.7); WHITE BLOOD COUNT (AUTO) 15.2 K/uL (4.8-10.8)
[2023-02-03 07:09] LABS: ALBUMIN 2.4 g/dL (3.4-5.0); ANION GAP 11.6 (8-16); CALCIUM 8.2 mg/dL (8.5-10.1); CARBON DIOXIDE 26.1 mmol/L (21-32); POTASSIUM 3.7 mmol/L (3.5-5.1); TOTAL BILIRUBIN 0.8 mg/dL (0.0-1.0); TOTAL PROTEIN, SERUM 7.6 g/dL (6.4-8.2)
[2023-02-03] MEDS: PANTOPRAZOLE 40 MG INJ VIAL IVP SCH (09:50)
[2023-02-03] MEDS: levETIRAcetam 1,000 MG in NACL 0.9% 100 ML IV SCH ×2 (09:52→21:03)
[2023-02-03] MEDS: PIPERACILLIN/TAZOBACTAM 3.375 GM in DEXTROSE 5% 50 ML IV SCH ×2 (15:00→20:17)
[2023-02-04] VITALS (13 sets, daily range): BP systolic 98–138; BP diastolic 60–80; PULSE 82–116; RESP 16–33; TEMP 97.7–98.7; O2SAT 92–100
[2023-02-04] MEDS: ALBUTEROL SULFATE/IPRATROPIU 3 ML SOL IH SCH ×4 (00:23→19:26)
[2023-02-04] MEDS: DEXT 5% /NACL 0.9% 1,000 ML IV SCH ×2 (03:32→20:25)
[2023-02-04] MEDS: PIPERACILLIN/TAZOBACTAM 3.375 GM in DEXTROSE 5% 50 ML IV SCH ×3 (06:01→20:22)
[2023-02-04 06:28] LABS: ALBUMIN 2.5 g/dL (3.4-5.0); ANION GAP 11.1 (8-16); CALCIUM 8.2 mg/dL (8.5-10.1); CARBON DIOXIDE 27.5 mmol/L (21-32); POTASSIUM 3.6 mmol/L (3.5-5.1); TOTAL BILIRUBIN 0.9 mg/dL (0.0-1.0); TOTAL PROTEIN, SERUM 7.6 g/dL (6.4-8.2)
[2023-02-04 06:33] LABS: BASOPHILS % (AUTO) 0.3 % (0.0-2.0); EOSINOPHILS # (AUTO) 0.3 K/uL (0-0.4); EOSINOPHILS % (AUTO) 2.4 % (0.0-4.0); HEMATOCRIT 31.9 % (36-52); HEMOGLOBIN 10.2 g/dL (12.0-18.0); LYMPHOCYTES # (AUTO) 2.1 K/uL (2.0-11.5); LYMPHOCYTES % (AUTO) 14.2 % (20.5-51.1); MEAN CORPUSCULAR HEMOGLOBIN 23 pg (27-31); MEAN CORPUSCULAR HGB CONC 32 g/dL (33-37); MEAN CORPUSCULAR VOLUME 72.4 fL (80-94); MONOCYTES # (AUTO) 0.9 K/uL (0.8-1.0); MONOCYTES % (AUTO) 6.1 % (1.7-9.3); NEUTROPHILS # (AUTO) 11.2 K/uL (1.8-7.7); PLATELET COUNT (AUTO) 211 K/uL (140-450); RED CELL DISTRIBUTION WIDTH 14.3 % (11.6-13.7); WHITE BLOOD COUNT (AUTO) 14.5 K/uL (4.8-10.8)
[2023-02-04] MEDS: PANTOPRAZOLE 40 MG INJ VIAL IVP SCH (08:55)
[2023-02-04] MEDS: levETIRAcetam 1,000 MG in NACL 0.9% 100 ML IV SCH ×2 (10:02→20:39)
[2023-02-05] VITALS (15 sets, daily range): BP systolic 110–127; BP diastolic 60–78; PULSE 72–116; RESP 16–26; TEMP 97.8–98.7; O2SAT 94–100
[2023-02-05] MEDS: DEXT 5% /NACL 0.9% 1,000 ML IV SCH ×2 (00:30→16:09)
[2023-02-05] MEDS: ALBUTEROL SULFATE/IPRATROPIU 3 ML SOL IH SCH ×4 (00:50→19:20)
[2023-02-05] MEDS: PIPERACILLIN/TAZOBACTAM 3.375 GM in DEXTROSE 5% 50 ML IV SCH ×3 (05:00→20:25)
[2023-02-05 05:07] LABS: BASOPHILS % (AUTO) 0.3 % (0.0-2.0); EOSINOPHILS # (AUTO) 0.3 K/uL (0-0.4); EOSINOPHILS % (AUTO) 3.1 % (0.0-4.0); HEMATOCRIT 31.7 % (36-52); HEMOGLOBIN 10.2 g/dL (12.0-18.0); LYMPHOCYTES # (AUTO) 2.3 K/uL (2.0-11.5); LYMPHOCYTES % (AUTO) 21.2 % (20.5-51.1); MEAN CORPUSCULAR HEMOGLOBIN 23 pg (27-31); MEAN CORPUSCULAR HGB CONC 32 g/dL (33-37); MEAN CORPUSCULAR VOLUME 72.7 fL (80-94); MONOCYTES # (AUTO) 1.1 K/uL (0.8-1.0); MONOCYTES % (AUTO) 9.8 % (1.7-9.3); NEUTROPHILS # (AUTO) 7.3 K/uL (1.8-7.7); NEUTROPHILS % (AUTO) 65.6 % (42.2-75.2); PLATELET COUNT (AUTO) 222 K/uL (140-450); RED BLOOD CELL COUNT(AUTO) 4.36 MIL/uL (4.20-6.10); RED CELL DISTRIBUTION WIDTH 14.3 % (11.6-13.7); WHITE BLOOD COUNT (AUTO) 11.1 K/uL (4.8-10.8)
[2023-02-05 05:30] LABS: ALBUMIN 2.5 g/dL (3.4-5.0); ANION GAP 13.9 (8-16); CALCIUM 8.5 mg/dL (8.5-10.1); CARBON DIOXIDE 25.4 mmol/L (21-32); POTASSIUM 4.3 mmol/L (3.5-5.1); TOTAL PROTEIN, SERUM 7.9 g/dL (6.4-8.2)
[2023-02-05] MEDS: PANTOPRAZOLE 40 MG INJ VIAL IVP SCH (16:05)
[2023-02-05] MEDS: levETIRAcetam 1,000 MG in NACL 0.9% 100 ML IV SCH (17:03)
[2023-02-06] VITALS (9 sets, daily range): BP systolic 120–141; BP diastolic 62–83; PULSE 63–96; RESP 16–32; TEMP 96.7–98.1; O2SAT 92–99
[2023-02-06] MEDS: ALBUTEROL SULFATE/IPRATROPIU 3 ML SOL IH SCH ×3 (01:20→12:28)
[2023-02-06] MEDS: PIPERACILLIN/TAZOBACTAM 3.375 GM in DEXTROSE 5% 50 ML IV SCH ×2 (04:30→13:20)
[2023-02-06] MEDS: DEXT 5% /NACL 0.9% 1,000 ML IV SCH (04:31)
[2023-02-06] MEDS: levETIRAcetam 1,000 MG in NACL 0.9% 100 ML IV SCH (05:17)
[2023-02-06 05:57] LABS: BASOPHILS % (AUTO) 0.4 % (0.0-2.0); EOSINOPHILS # (AUTO) 0.5 K/uL (0-0.4); EOSINOPHILS % (AUTO) 4.7 % (0.0-4.0); HEMATOCRIT 32.9 % (36-52); HEMOGLOBIN 10.6 g/dL (12.0-18.0); LYMPHOCYTES # (AUTO) 2.3 K/uL (2.0-11.5); LYMPHOCYTES % (AUTO) 22.4 % (20.5-51.1); MEAN CORPUSCULAR HEMOGLOBIN 23 pg (27-31); MEAN CORPUSCULAR HGB CONC 32 g/dL (33-37); MEAN CORPUSCULAR VOLUME 72.3 fL (80-94); MONOCYTES # (AUTO) 1.1 K/uL (0.8-1.0); MONOCYTES % (AUTO) 10.6 % (1.7-9.3); NEUTROPHILS # (AUTO) 6.2 K/uL (1.8-7.7); NEUTROPHILS % (AUTO) 61.9 % (42.2-75.2); PLATELET COUNT (AUTO) 232 K/uL (140-450); RED BLOOD CELL COUNT(AUTO) 4.55 MIL/uL (4.20-6.10); RED CELL DISTRIBUTION WIDTH 14.3 % (11.6-13.7)
[2023-02-06 07:01] LABS: ALBUMIN 2.7 g/dL (3.4-5.0); CALCIUM 8.5 mg/dL (8.5-10.1); CARBON DIOXIDE 26.6 mmol/L (21-32); CREATININE 1.1 mg/dL (0.6-1.3); MAGNESIUM 1.9 mg/dL (1.8-2.4); POTASSIUM 3.6 mmol/L (3.5-5.1); TOTAL BILIRUBIN 0.7 mg/dL (0.0-1.0); TOTAL PROTEIN, SERUM 8.2 g/dL (6.4-8.2)
[2023-02-06] MEDS: PANTOPRAZOLE 40 MG INJ VIAL IVP SCH (09:33)
[2023-02-06] MEDS ORDERED: CEFP200T20 GT (12:02)
== END 2023-02-06 15:25 | DRG 870 ==
LOC: MED 19:11 → MMU 21:32
PROVIDERS: ADMIT Hospitalist; ATTEND Hospitalist
PROC: 5A1955Z Respiratory Ventilation, Greater than 96 Consecutive Hours (ICD-10-PCS; principal; 2023-02-01)
PROC: 05HY33Z Insertion of Infusion Device into Upper Vein, Percutaneous Approach (ICD-10-PCS; 2023-02-05)
PROC: B54MZZA Ultrasonography of Right Upper Extremity Veins, Guidance (ICD-10-PCS; 2023-02-05)
DX: A41.9 Sepsis, unspecified organism (principal); J69.0 Pneumonitis due to inhalation of food and vomit; J96.21 Acute and chronic respiratory failure with hypoxia; K56.609 Unspecified intestinal obstruction, unspecified as to partial versus complete obstruction; G93.1 Anoxic brain damage, not elsewhere classified; G93.40 Encephalopathy, unspecified; R13.10 Dysphagia, unspecified; R65.20 Severe sepsis without septic shock; D72.829 Elevated white blood cell count, unspecified; Z20.822 Contact with and (suspected) exposure to COVID-19; K21.9 Gastro-esophageal reflux disease without esophagitis; Z93.0 Tracheostomy status; Z93.1 Gastrostomy status
CPT/HCPCS: 36415; 36600; 71045; 74018; 74250; 80053; 81003; 82803; 83605; 83735; 83880; 84484; 85025; 87040; 87070; 87081; 87086; 87205; 89220; 93005; 94003; 94640; 96365; 99285; C9113; J0696; J1644; J1953; J2543; J7060; Q0092

== ENCOUNTER 2023-05-24 10:49 | Emergency (ER) | payer OTHER, MEDICAID ==
[~2023-05-24] VITALS: Ht 175.3 cm; Wt 63.5 kg
[~2023-05-24 10:49] MED LIST changes: +CEFP200T20 GT; -MERO500P9 IV; -MORP10SY PO
[2023-05-24 10:54] VITALS: BP 106/70; PULSE 82; RESP 16; TEMP 98.5; O2SAT 100
[2023-05-24 13:08] VITALS: RESP 14
[2023-05-24 14:50] VITALS: BP 112/71; PULSE 91; O2SAT 100
== END 2023-05-24 14:52 ==
LOC: MED 10:49
DX: K94.23 Gastrostomy malfunction (principal); I11.9 Hypertensive heart disease without heart failure; K21.9 Gastro-esophageal reflux disease without esophagitis; Z79.899 Other long term (current) drug therapy
CPT/HCPCS: 43762; 99284

== ENCOUNTER 2023-10-02 20:31 | Inpatient (IN) | payer OTHER ==
[~2023-10-02] VITALS: Ht 175.3 cm; Wt 81.6 kg
[~2023-10-02 20:31] MED LIST changes: +CHLO473M PO; -CHLO480L1 PO
[2023-10-02 20:49] VITALS: BP 126/76; PULSE 147; RESP 26; TEMP 98; O2SAT 99
[2023-10-02] MEDS ORDERED: cefTRIAXone 1,000 MG VIAL ONE (21:55)
[2023-10-02] MEDS: NACL 0.9% 2,000 ML IV ONE (21:57)
[2023-10-02 22:00] LABS: BASOPHILS % (AUTO) 0.3 % (0.0-2.0); EOSINOPHILS % (AUTO) 0.1 % (0.0-4.0); HEMATOCRIT 51.4 % (36-52); HEMOGLOBIN 16.9 g/dL (12.0-18.0); LYMPHOCYTES # (AUTO) 1.2 K/uL (2.0-11.5); LYMPHOCYTES % (AUTO) 14.2 % (20.5-51.1); MEAN CORPUSCULAR HEMOGLOBIN 24 pg (27-31); MEAN CORPUSCULAR HGB CONC 33 g/dL (33-37); MEAN CORPUSCULAR VOLUME 71.4 fL (80-94); MONOCYTES # (AUTO) 0.5 K/uL (0.8-1.0); NEUTROPHILS # (AUTO) 6.5 K/uL (1.8-7.7); NEUTROPHILS % (AUTO) 79.4 % (42.2-75.2); PLATELET COUNT (AUTO) 397 K/uL (140-450); RED BLOOD CELL COUNT(AUTO) 7.19 MIL/uL (4.20-6.10); RED CELL DISTRIBUTION WIDTH 14.5 % (11.6-13.7); WHITE BLOOD COUNT (AUTO) 8.2 K/uL (4.8-10.8)
[2023-10-02 22:06] VITALS: PULSE 149; RESP 30; O2SAT 92; O2SAT 98
[2023-10-02 22:13] VITALS: PULSE 147; O2SAT 98
[2023-10-02 22:33] LABS: ALBUMIN 4.2 g/dL (3.4-5.0); ANION GAP 19.2 (8-16); CALCIUM 10.8 mg/dL (8.5-10.1); CARBON DIOXIDE 27.6 mmol/L (21-32); CREATININE 3.2 mg/dL (0.6-1.3); POTASSIUM 5.8 mmol/L (3.5-5.1); TOTAL BILIRUBIN 0.6 mg/dL (0.0-1.0)
[2023-10-02] MEDS: NACL 0.9% 1,500 ML IV ONE (22:36)
[2023-10-02] MEDS: DEXTROSE 50% 50 ML SYR IVP ONE (23:15)
[2023-10-02] MEDS: SODIUM ZIRCONIUM CYCLOSILICATE 10 GM POWD.PACK GT ONE (23:15)
[2023-10-02] MEDS: CALCIUM GLUCONATE 10% 1,000 MG in NACL 0.9% 50 ML IV ONE (23:15)
[2023-10-02] MEDS: INSULIN REGULAR, HUMAN 100 UNIT/ML VIAL IV ONE (23:15)
[2023-10-02 23:16] LABS: APPEARANCE,URINE HAZY (CLEAR); COLOR,URINE YELLOW (YELLOW)
[2023-10-02 23:17] LABS: BLOOD, URINE 2+ (NEGATIVE); PROTEIN,URINE 2+ (NEGATIVE); UGLUCOSE NEGATIVE (NEGATIVE)
[2023-10-02 23:18] LABS: BILIRUBIN,URINE NEGATIVE (NEGATIVE)
[2023-10-02 23:19] LABS: LEUKOCYTE ESTERASE ,URINE 1+ (NEGATIVE); NITRITE, URINE NEGATIVE (NEGATIVE); UROBILINOGEN,URINE 0.2 EU/dL (0.2 - 1)
[2023-10-02 23:28] LABS: BACTERIA,URINE >30 (MANY) /HPF (None Seen); SQUAMOUS EPITHELIAL CELL,UR 0-3 (FEW) /LPF (0-3 (FEW)); WBC,URINE TOO MANY TO COUNT /HPF (0-5)
[2023-10-02 23:29] LABS: MUCUS,URINE 2+ /LPF (None Seen)
[2023-10-02] MEDS: NACL 0.9% 500 ML IV ONE (23:37)
[2023-10-02] MEDS ORDERED: CALCIUM GLUC 1 GM/50 mL NS BAG 50 ML IV ONE ×2 (23:45→23:46)
[2023-10-03] VITALS (9 sets, daily range): BP systolic 113–134; BP diastolic 76–98; PULSE 98–145; RESP 11–21; TEMP 98–98.6; O2SAT 95–100
[2023-10-03] MEDS ORDERED: MAG SULF 2000 MG/WATER PREMIX 50 ML IV PRN (08:40)
[2023-10-03] MEDS ORDERED: KCL 20 MEQ IN 100 mL PREMIX 200 ML IV PRN (08:40)
[2023-10-03] MEDS ORDERED: MORPHINE SULFATE 4 MG/ML SYR IVP PRN (08:40)
[2023-10-03] MEDS ORDERED: ONDANSETRON 4 MG/2 ML VIAL IVP PRN (08:40)
[2023-10-03] MEDS: NACL 0.9% 1,000 ML IV SCH (09:30)
[2023-10-03 11:30] LABS: ANION GAP 16.4 (8-16); CALCIUM 8.7 mg/dL (8.5-10.1); CARBON DIOXIDE 26.6 mmol/L (21-32); CREATININE 2.2 mg/dL (0.6-1.3); TOTAL BILIRUBIN 0.4 mg/dL (0.0-1.0); TOTAL PROTEIN, SERUM 9.6 g/dL (6.4-8.2)
[2023-10-03] MEDS ORDERED: PIPERACILLIN/TAZOBACTAM 3.375 GM in DEXTROSE 5% 50 ML IV SCH (12:00)
[2023-10-03] MEDS ORDERED: PIPERACILLIN/TAZOBACTAM 2.25 GM VIAL IV ONE (12:21)
[2023-10-03] MEDS: PIPERACILLIN/TAZOBACTAM 2.25 GM in DEXTROSE 5% 50 ML IV SCH (12:24)
[2023-10-03] MEDS ORDERED: RENAL DOSING PER PHARMACY MC PRN (12:50)
[2023-10-04] VITALS (14 sets, daily range): BP systolic 101–136; BP diastolic 71–87; PULSE 110–134; RESP 16–19; TEMP 96.6–97.6; O2SAT 98–100
[2023-10-04 07:31] LABS: ALBUMIN 2.5 g/dL (3.4-5.0); ANION GAP 16.4 (8-16); CALCIUM 8.6 mg/dL (8.5-10.1); CARBON DIOXIDE 22.6 mmol/L (21-32); CREATININE 1.5 mg/dL (0.6-1.3); MAGNESIUM 2.9 mg/dL (1.8-2.4); TOTAL BILIRUBIN 0.5 mg/dL (0.0-1.0); TOTAL PROTEIN, SERUM 8.7 g/dL (6.4-8.2)
[2023-10-04] MEDS ORDERED: MORPHINE SULFATE 4 MG/ML SYR IVP PRN (14:50)
[2023-10-04] MEDS ORDERED: ONDANSETRON 4 MG/2 ML VIAL IVP PRN (14:50)
[2023-10-04] MEDS ORDERED: SCOPOLAMINE 1.5 MG/72 HR PATCH TD PRN (14:50)
[2023-10-04] MEDS ORDERED: HYOSCYAMINE 0.125 MG TAB SL PRN (14:50)
[2023-10-04] MEDS ORDERED: SODIUM PHOSPHATE 118 ML ENEM RC PRN (14:50)
[2023-10-04] MEDS ORDERED: POLYETHYLENE GLYCOL 17 GM/PKT PO PRN (14:50)
[2023-10-04] MEDS: MORPHINE SULFATE 100 MG in NACL 0.9% 90 ML IV SCH (16:12)
[2023-10-05] VITALS (14 sets, daily range): BP systolic 112–127; BP diastolic 63–76; PULSE 76–108; RESP 12–20; TEMP 97.4–98.3; O2SAT 94–100
[2023-10-05 07:01] LABS: ANION GAP 12.8 (8-16); CALCIUM 8.6 mg/dL (8.5-10.1); CARBON DIOXIDE 26.4 mmol/L (21-32); CREATININE 1.1 mg/dL (0.6-1.3); POTASSIUM 4.2 mmol/L (3.5-5.1)
[2023-10-05 08:48] LABS: ALBUMIN 2.4 g/dL (3.4-5.0); ANION GAP 16.6 (8-16); CALCIUM 8.7 mg/dL (8.5-10.1); CARBON DIOXIDE 23.6 mmol/L (21-32); CREATININE 1.1 mg/dL (0.6-1.3); MAGNESIUM 2.7 mg/dL (1.8-2.4); POTASSIUM 4.2 mmol/L (3.5-5.1); TOTAL BILIRUBIN 0.3 mg/dL (0.0-1.0); TOTAL PROTEIN, SERUM 8.2 g/dL (6.4-8.2)
[2023-10-06] VITALS (10 sets, daily range): BP systolic 116–117; BP diastolic 67–74; PULSE 97–113; RESP 16–20; TEMP 98.1–99.6; O2SAT 95–100
[2023-10-06] MEDS ORDERED: MORPHINE SULFATE 10 MG/ML VIAL ONE (23:25)
[2023-10-06] MEDS: MORPHINE SULFATE 10 MG/ML VIAL ONE (23:32)
[2023-10-07] VITALS (10 sets, daily range): BP systolic 122; BP diastolic 68; PULSE 81–122; RESP 16–20; TEMP 98.1; O2SAT 98–100
[2023-10-08] VITALS (12 sets, daily range): PULSE 110–133; RESP 15–18; TEMP 98.5; O2SAT 97–99
[2023-10-08] MEDS: LORazepam 2 MG/ML VIAL IVP PRN (15:03)
[2023-10-08] MEDS: MORPHINE SULFATE 100 MG in NACL 0.9% 90 ML IV SCH (17:23)
[2023-10-09] VITALS (15 sets, daily range): PULSE 72–131; RESP 15–24; TEMP 97.9–98.3; O2SAT 96–99
[2023-10-10] VITALS (9 sets, daily range): BP systolic 109–133; BP diastolic 62–84; PULSE 114–140; RESP 15–20; TEMP 96.5–97.8; O2SAT 95–99
[2023-10-10] MEDS ORDERED: NON ADHERENT DRESSING TP PRN (09:20)
[2023-10-10] MEDS: NON ADHERENT DRESSING TP SCH (13:38)
[2023-10-11] VITALS (12 sets, daily range): BP systolic 103–129; BP diastolic 64–83; PULSE 125–140; RESP 15–19; TEMP 97.8–98.7; O2SAT 95–98
[2023-10-11] MEDS ORDERED: MORP4SOL10 IVP (15:40)
[2023-10-11] MEDS ORDERED: LORA2VIA2 IVP (15:40)
[2023-10-12] VITALS (11 sets, daily range): BP systolic 106–123; BP diastolic 69–85; PULSE 135–150; RESP 17–20; TEMP 96.8–100.3; O2SAT 93–97
[2023-10-12] MEDS: ACETAMINOPHEN 325 MG TAB PO PRN (11:41)
[2023-10-13] VITALS (10 sets, daily range): BP systolic 95–119; BP diastolic 62–71; PULSE 149–154; RESP 16–40; TEMP 96.6–98.2; O2SAT 93–96
[2023-10-13] MEDS: LORazepam 2 MG/ML VIAL IVP PRN (02:52)
== END 2023-10-13 14:30 | disposition hospice, home (50) | DRG 871 ==
LOC: MED 20:31 → MTU 10-03 00:01
PROVIDERS: ADMIT Hospitalist; ATTEND Hospitalist
PROC: 5A1945Z Respiratory Ventilation, 24-96 Consecutive Hours (ICD-10-PCS; principal; 2023-10-02)
DX: A41.9 Sepsis, unspecified organism (principal); J96.21 Acute and chronic respiratory failure with hypoxia; N39.0 Urinary tract infection, site not specified; E87.20 Acidosis, unspecified; G93.1 Anoxic brain damage, not elsewhere classified; G93.40 Encephalopathy, unspecified; N17.9 Acute kidney failure, unspecified; E87.5 Hyperkalemia; R65.20 Severe sepsis without septic shock; Z79.899 Other long term (current) drug therapy; Z87.820 Personal history of traumatic brain injury; Z93.0 Tracheostomy status; Z93.1 Gastrostomy status
CPT/HCPCS: 36415; 71045; 80048; 80053; 81001; 82948; 83605; 83735; 83880; 84484; 85025; 87040; 87081; 87086; 87186; 93005; 94003; 96374; 96375; 99291; J0610; J0696; J1644; J1815; J2060; J2270; J2543; J7060